=== PATIENT | female | born 1970 | race Caucasian/White ===

== ENCOUNTER 2018-06-12 19:43 | Emergency (ER) | payer MEDICAID ==
[~2018-06-12] VITALS: Ht 157.5 cm; Wt 91.9 kg
[2018-06-12 19:46] VITALS: BP 124/85
== END 2018-06-12 20:43 | disposition home or self-care (01) ==
LOC: ED 20:30
DX: H60.501 Unspecified acute noninfective otitis externa, right ear (principal); E11.9 Type 2 diabetes mellitus without complications
CPT/HCPCS: 99283

== ENCOUNTER 2019-10-14 11:13 | Emergency (ER) | payer MEDICAID ==
[~2019-10-14] VITALS: Ht 157.5 cm; Wt 100.0 kg
[2019-10-14] MEDS ORDERED: LIDOCAINE-MPF 1%, 5ML INFIL ONE (11:30)
[2019-10-14] MEDS ORDERED: OXYcodone/APAP 5/325MG TABLET ONE (14:38)
[2019-10-14] MEDS ORDERED: NEOSPORIN OINT. PKT 1 PACKET ONE (14:52)
[2019-10-14] MEDS ORDERED: OXYcodone/APAP 5/325MG TABLET PO ONE (15:00)
[2019-10-14 15:24] VITALS: BP 125/70
== END 2019-10-14 15:27 | disposition home or self-care (01) ==
LOC: ED 15:21
DX: L03.312 Cellulitis of back [any part except buttock and flank] (principal); E11.9 Type 2 diabetes mellitus without complications
CPT/HCPCS: 99284

== ENCOUNTER 2019-11-18 11:31 | Emergency (ER) | payer MEDICAID ==
[~2019-11-18] VITALS: Ht 157.5 cm; Wt 101.4 kg
[2019-11-18 12:32] LABS: BASOPHILS # (AUTO) 0.06 x10^3/uL (0-0.1); BASOPHILS % (AUTO) 1 % (0-1); EOSINOPHILS # (AUTO) 0.31 x10^3/uL (0-0.4); EOSINOPHILS % (AUTO) 5 % (1-7); LYMPHOCYTES # (AUTO) 1.34 x10^3/uL (1-3.4); LYMPHOCYTES % (AUTO) 19 % (22-44); MD NO; MEAN CORPUSCULAR HEMOGLOBIN 28.3 pg (27.0-34.8); MEAN CORPUSCULAR HGB CONC 33.2 g/dL (32.4-35.8); MEAN CORPUSCULAR VOLUME 85.3 fL (80-100); MEAN PLATELET VOLUME 7.8 fL (7.4-10.4); MONOCYTES # (AUTO) 0.35 x10^3/uL (0.2-0.8); MONOCYTES % (AUTO) 5 % (2-9); NEUTROPHILS # (AUTO) 4.82 x10^3/uL (1.8-6.8); NEUTROPHILS % (AUTO) 70 % (42-75); PLATELET COUNT 384 x10^3/uL (130-400); RED BLOOD COUNT 3.75 x10^6/uL (3.82-5.3); RED CELL DISTRIBUTION WIDTH 13.9 % (9.6-15.2)
--- NOTE | 2019-11-18 12:32 | NUR ---
PT HAS CO OF BILAT LEG SWELLING W PAIN STARTED YESTERDAY. RIGHT GREATHER THAN LEFT. PT DENIES CP OR SOB. TAKES LASIX
[2019-11-18 12:41] LABS: ALANINE AMINOTRANSFERASE 16 U/L (12-78); ALBUMIN 1.8 g/dL (3.4-5.0); ANION GAP 4 mmol/L (5-15); CALCIUM 8.2 mg/dL (8.5-10.1); CHLORIDE 113 mmol/L (98-107); CREATININE 1.21 mg/dL (0.55-1.02)
[2019-11-18 12:45] LABS: ALKALINE PHOSPHATASE 125 U/L (45-117); BILIRUBIN,TOTAL 0.3 mg/dL (0.2-1.0); TOTAL PROTEIN 7.1 g/dL (6.4-8.2); TROPONIN I < 0.015 ng/mL (0.000-0.045)
[2019-11-18 13:29] VITALS: BP 123/87
--- NOTE | 2019-11-18 14:06 | NUR ---
DPatient/Caregiver given discharge instructions and they have confirmed that they understand the instructions. Patient ambulatory with steady gait.
== END 2019-11-18 14:14 | disposition home or self-care (01) ==
LOC: ED 14:07
DX: R60.0 Localized edema (principal); E11.9 Type 2 diabetes mellitus without complications; I51.7 Cardiomegaly
CPT/HCPCS: 36415; 71045; 80053; 83880; 84484; 85025; 93005; 93970; 99285

== ENCOUNTER 2020-09-24 19:54 | Inpatient (IN) | payer MEDICAID ==
[~2020-09-24] VITALS: Ht 157.5 cm; Wt 122.3 kg
--- NOTE | 2020-09-24 20:27 | NUR ---
cc of sob and left ear pain. pt states "I always feels sob today it just feels worse like I can't catch my breath and my mom told me to come get checked out". pt connected to continuous pulse ox, 98% on RA.
[2020-09-24 20:28] LABS: BASOPHILS % (AUTO) 1 % (0-1); EOSINOPHILS % (AUTO) 10 % (1-7); LYMPHOCYTES % (AUTO) 16 % (22-44); MEAN CORPUSCULAR HGB CONC 31.9 g/dL (32.4-35.8); MEAN PLATELET VOLUME 7.1 fL (7.4-10.4); MONOCYTES % (AUTO) 5 % (2-9); NEUTROPHILS % (AUTO) 68 % (42-75); PLATELET COUNT 351 x10^3/uL (130-400); RED BLOOD COUNT 2.59 x10^6/uL (3.82-5.3); RED CELL DISTRIBUTION WIDTH 15.5 % (9.6-15.2)
[2020-09-24 20:29] LABS: MD NO
[2020-09-24] MEDS ORDERED: SODIUM CHLORIDE FLUSH 10ML SYR IVF ONE (20:30)
[2020-09-24 20:40] LABS: ALANINE AMINOTRANSFERASE 29 U/L (12-78); ALBUMIN 1.4 g/dL (3.4-5.0); ANION GAP 5 mmol/L (5-15); CALCIUM 8.2 mg/dL (8.5-10.1); CHLORIDE 126 mmol/L (98-107); CREATININE 2.35 mg/dL (0.55-1.02); INTERNATIONAL NORMALIZED RATIO 0.92 (0.93-1.1); PROTHROMBIN TIME 9.8 Seconds (9.6-11.5)
[2020-09-24 20:45] LABS: ALKALINE PHOSPHATASE 125 U/L (45-117); BILIRUBIN,TOTAL 0.1 mg/dL (0.2-1.0); TOTAL PROTEIN 6.4 g/dL (6.4-8.2)
[2020-09-24 20:56] LABS: MICROSCOPIC INDICATED
[2020-09-24] MEDS ORDERED: CEFTRIAXONE PMX 1GM/50ML 50 ML IVPB ONE (21:00)
--- NOTE | 2020-09-24 21:00 | NUR ---
ua walked to lab
[2020-09-24] MEDS ORDERED: CEFTRIAXONE PMX 1GM/50ML 50 ML ONE (21:04)
--- NOTE | 2020-09-24 21:15 | NUR ---
pt to imaging
--- NOTE | 2020-09-24 21:30 | NUR ---
pt in bathroom
[2020-09-24] MEDS ORDERED: SODIUM CHLORIDE FLUSH 10ML SYR IVF PRN (22:00)
--- NOTE | 2020-09-24 22:00 | NUR ---
BLOOD CULTURES X 2 COMPLETED BEFORE ABX ADMINISTRATION
[2020-09-24] MEDS ORDERED: SODIUM BICARBONATE 1 MEQ/ML, 50ML VIAL IVPush ONE (22:30)
[2020-09-24] MEDS ORDERED: DOCUSATE 100 MG CAPSULE PO PRN (23:00)
[2020-09-24] MEDS ORDERED: BISACODYL 10 MG SUPP PR PRN (23:00)
[2020-09-24] MEDS ORDERED: hydrALAzine 20 MG/ML, 1ML IVPush PRN (23:00)
[2020-09-24] MEDS ORDERED: POLYETHYLENE GLYCOL 17 GM PACKET PO PRN (23:00)
[2020-09-24] MEDS ORDERED: DEXTROSE 50%, 50ML SYRINGE IVPush PRN (23:00)
[2020-09-24] MEDS ORDERED: PROMETHAZINE 25 MG/ML, 1ML IM PRN (23:00)
[2020-09-24] MEDS ORDERED: GLUCAGON 1 MG IM PRN (23:00)
[2020-09-24] MEDS ORDERED: ONDANSETRON 2MG/ML, 2ML IVPush PRN (23:00)
[2020-09-24] MEDS ORDERED: ONDANSETRON ODT 4 MG PO PRN (23:00)
[2020-09-24] MEDS ORDERED: OXYcodone IR 5MG TABLET PO PRN (23:00)
[2020-09-24] MEDS ORDERED: DEXTROSE 4 GM TAB.CHEW PO PRN (23:00)
[2020-09-24] MEDS ORDERED: morphine SULFATE 10 MG/ML, 1ML IVPush PRN (23:00)
[2020-09-24 23:05] LABS: HCT (SEDRATE) 23.6 % (34.6-47.8)
[2020-09-24] MEDS ORDERED: SODIUM BICARB 8.4%, 50ML SYRINGE ONE (23:32)
[2020-09-24] MEDS ORDERED: FUROSEMIDE 40 MG/4 ML ONE (23:32)
[2020-09-24] MEDS ORDERED: HEPARIN 5,000 UNITS/ML, 1ML ONE (23:32)
[2020-09-24] MEDS: ALBUMIN HUMAN 25% 100 ML IV SCH (23:54)
[2020-09-24] MEDS: HEPARIN 5,000 UNITS/ML, 1ML SQ SCH (23:54)
--- NOTE | 2020-09-25 | NUR ---
PT RESTING. RESP EVEN AND UNLABORED. NO NEEDS AT THIS TIME
--- NOTE | 2020-09-25 00:58 | NUR ---
PT PLACED ON HOSPITAL BED
[2020-09-25] MEDS ORDERED: FUROSEMIDE 40 MG/4 ML IV ONE (01:00)
[2020-09-25] MEDS: AZITHROMYCIN 500 MG in SODIUM CHLORIDE 0.9% 250 ML IV SCH (01:01)
--- NOTE | 2020-09-25 01:06 | NUR ---
PT UP TO BATHROOM FOR BM
--- NOTE | 2020-09-25 02:05 | NUR ---
pt sleeping, resp even and unlabored.
--- NOTE | 2020-09-25 03:32 | NUR ---
covid test collected and walked to lab
[2020-09-25 05:03] LABS: BASOPHILS % (AUTO) 1 % (0-1); EOSINOPHILS % (AUTO) 8 % (1-7); LYMPHOCYTES % (AUTO) 16 % (22-44); MEAN CORPUSCULAR HGB CONC 31.7 g/dL (32.4-35.8); MEAN PLATELET VOLUME 7.3 fL (7.4-10.4); MONOCYTES % (AUTO) 5 % (2-9); NEUTROPHILS % (AUTO) 70 % (42-75); PLATELET COUNT 302 x10^3/uL (130-400); RED CELL DISTRIBUTION WIDTH 15.9 % (9.6-15.2)
[2020-09-25 05:14] LABS: ALBUMIN 1.8 g/dL (3.4-5.0); ANION GAP 4 mmol/L (5-15); CALCIUM 7.9 mg/dL (8.5-10.1); CHLORIDE 127 mmol/L (98-107)
[2020-09-25 05:15] LABS: MD NO
[2020-09-25 05:25] LABS: ALANINE AMINOTRANSFERASE 30 U/L (12-78); ALKALINE PHOSPHATASE 116 U/L (45-117); BILIRUBIN,TOTAL 0.1 mg/dL (0.2-1.0); C-REACTIVE PROTEIN, QUANT 0.61 mg/dL (0.02-0.49); CHOL/HDL RATIO 1.9; CHOLESTEROL, TOTAL 91 mg/dL (140-239); CREATININE 2.19 mg/dL (0.55-1.02); HDL CHOL % 54 % (28-40); HDL CHOLESTEROL (DIRECT) 49 mg/dL (40-60); LDL CHOLESTEROL,CALCULATED 25 mg/dL (54-169); LDL/HDL RATIO 0.5 (0.5-3.0); TOTAL PROTEIN 6.3 g/dL (6.4-8.2); TRIGLYCERIDES 85 mg/dL (50-200); VLDL CHOLESTEROL 17 mg/dL (0-25)
--- NOTE | 2020-09-25 05:31 | NUR ---
hemoglobin and hematocrit reported to dr stevenson. no new orders at this time
[2020-09-25] MEDS: ALBUMIN HUMAN 25% 100 ML IV SCH ×4 (06:17→23:04)
--- NOTE | 2020-09-25 06:20 | NUR ---
PT SLEEPING, RESP EVEN AND UNLABORED, CALL LIGHT WITHIN REACH
--- NOTE | 2020-09-25 07:00 | NUR ---
REPORT GIVEN TO JENNIE WESLEY
[2020-09-25] MEDS ORDERED: SODIUM ZIRCONIUM CYCLOSILICATE 5 GM PO ONE (08:00)
[2020-09-25] MEDS ORDERED: HEPARIN 5,000 UNITS/ML, 1ML ONE (08:10)
[2020-09-25] MEDS: INSULIN LISPRO 100 UNITS/ML, PEN SQ-INSULIN SCH ×4 (08:17→21:00)
[2020-09-25] MEDS: SODIUM CHLORIDE FLUSH 10ML SYR IVF SCH ×2 (08:18→20:48)
[2020-09-25] MEDS: HEPARIN 5,000 UNITS/ML, 1ML SQ SCH (08:18)
--- NOTE | 2020-09-25 08:35 | NUR ---
PT PROVIDED WITH MEAL TRAY. DENIES FURTHER NEEDS AT THIS TIME
[2020-09-25] MEDS ORDERED: FUROSEMIDE 40 MG/4 ML IV SCH (10:00)
[2020-09-25] MEDS: SODIUM BICARBONATE 650 MG TABLET PO SCH ×2 (10:28→20:48)
[2020-09-25] MEDS ORDERED: OXYcodone IR 5MG TABLET ONE (11:15)
[2020-09-25] MEDS ORDERED: FUROSEMIDE 20 MG/2 ML ONE (12:50)
[2020-09-25] MEDS ORDERED: FUROSEMIDE 40 MG/4 ML ONE (12:52)
[2020-09-25] MEDS ORDERED: PANTOPRAZOLE 40 MG IV ONE (12:52)
[2020-09-25] MEDS: PANTOPRAZOLE 40 MG IV IVPush SCH (12:56)
[2020-09-25 14:26] LABS: ANION GAP 4 mmol/L (5-15); CALCIUM 8.5 mg/dL (8.5-10.1); CHLORIDE 127 mmol/L (98-107); CREATININE 2.23 mg/dL (0.55-1.02)
[2020-09-25] MEDS: SUCRALFATE 1 GM TABLET PO SCH ×2 (16:02→20:49)
[2020-09-25 16:23] VITALS: BP 108/64
[2020-09-25 16:46] VITALS: BP 108/64
[2020-09-25 16:50] VITALS: BP 110/66
[2020-09-25 17:05] VITALS: BP 108/67
[2020-09-25 17:45] VITALS: BP 114/71
[2020-09-25] MEDS ORDERED: CEFTRIAXONE PMX 2GM/50ML 50 ML IVPB SCH (19:00)
[2020-09-25 19:32] VITALS: BP 138/81
[2020-09-26 00:30] VITALS: BP 112/70
[2020-09-26] MEDS: AZITHROMYCIN 500 MG in SODIUM CHLORIDE 0.9% 250 ML IV SCH (01:49)
[2020-09-26] MEDS: PANTOPRAZOLE 40 MG IV IVPush SCH ×2 (01:50→12:04)
[2020-09-26 06:17] LABS: BASOPHILS % (AUTO) 1 % (0-1); EOSINOPHILS % (AUTO) 8 % (1-7); LYMPHOCYTES % (AUTO) 13 % (22-44); MEAN CORPUSCULAR HEMOGLOBIN 29.7 pg (27.0-34.8); MEAN CORPUSCULAR HGB CONC 32.5 g/dL (32.4-35.8); MEAN PLATELET VOLUME 7.6 fL (7.4-10.4); MONOCYTES % (AUTO) 6 % (2-9); NEUTROPHILS % (AUTO) 73 % (42-75); PLATELET COUNT 308 x10^3/uL (130-400); RED BLOOD COUNT 2.59 x10^6/uL (3.82-5.3); RED CELL DISTRIBUTION WIDTH 15.6 % (9.6-15.2)
[2020-09-26 06:22] LABS: MD NO
[2020-09-26 06:23] LABS: ALBUMIN 2.8 g/dL (3.4-5.0); ANION GAP 8 mmol/L (5-15); CALCIUM 8.5 mg/dL (8.5-10.1); CHLORIDE 123 mmol/L (98-107); CREATININE 2.32 mg/dL (0.55-1.02)
[2020-09-26 06:27] LABS: ALANINE AMINOTRANSFERASE 35 U/L (12-78); ALKALINE PHOSPHATASE 115 U/L (45-117); BILIRUBIN,TOTAL 0.3 mg/dL (0.2-1.0); TOTAL PROTEIN 6.8 g/dL (6.4-8.2)
[2020-09-26] MEDS: SUCRALFATE 1 GM TABLET PO SCH ×4 (06:42→20:43)
[2020-09-26] MEDS ORDERED: SODIUM ZIRCONIUM CYCLOSILICATE 10 GM PO ONE (07:00)
[2020-09-26 07:01] VITALS: BP 119/70
[2020-09-26] MEDS: INSULIN LISPRO 100 UNITS/ML, PEN SQ-INSULIN SCH ×2 (08:24→12:05)
[2020-09-26] MEDS: SODIUM BICARBONATE 650 MG TABLET PO SCH ×2 (10:38→20:43)
[2020-09-26] MEDS: SODIUM CHLORIDE FLUSH 10ML SYR IVF SCH ×2 (10:38→20:43)
[2020-09-26] MEDS: ALBUMIN HUMAN 25% 100 ML IV SCH (10:38)
[2020-09-26] MEDS: FUROSEMIDE 40 MG/4 ML IV SCH (10:38)
[2020-09-26 12:03] VITALS: BP 126/71
[2020-09-26] MEDS: ACETAMINOPHEN 325 MG TABLET PO PRN (12:04)
[2020-09-26] MEDS: IRON SUCROSE COMPLEX 100MG/5ML IV SCH (13:13)
[2020-09-26] MEDS: SODIUM ZIRCONIUM CYCLOSILICATE 5 GM PO SCH ×3 (14:21→22:45)
[2020-09-26 14:58] LABS: ANA SCREEN NEGATIVE (Negative)
[2020-09-26 20:18] VITALS: BP 142/79
[2020-09-27 02:03] VITALS: BP 119/62
[2020-09-27] MEDS: SUCRALFATE 1 GM TABLET PO SCH ×4 (05:53→20:10)
[2020-09-27] MEDS: PANTOPRAZOLE 40MG TABLET PO SCH ×2 (05:53→17:11)
[2020-09-27 06:31] VITALS: BP 130/72
[2020-09-27 07:55] LABS: BASOPHILS % (AUTO) 1 % (0-1); EOSINOPHILS % (AUTO) 6 % (1-7); LYMPHOCYTES % (AUTO) 12 % (22-44); MEAN CORPUSCULAR HGB CONC 32.1 g/dL (32.4-35.8); MEAN PLATELET VOLUME 7.3 fL (7.4-10.4); MONOCYTES % (AUTO) 5 % (2-9); NEUTROPHILS % (AUTO) 76 % (42-75); PLATELET COUNT 309 x10^3/uL (130-400); RED BLOOD COUNT 2.65 x10^6/uL (3.82-5.3); RED CELL DISTRIBUTION WIDTH 15.9 % (9.6-15.2)
[2020-09-27 08:05] LABS: MD NO
[2020-09-27 08:11] LABS: ANION GAP 6 mmol/L (5-15); CALCIUM 8.7 mg/dL (8.5-10.1); CHLORIDE 124 mmol/L (98-107); CREATININE 2.23 mg/dL (0.55-1.02)
[2020-09-27] MEDS: FUROSEMIDE 40 MG/4 ML IV SCH (09:00)
[2020-09-27] MEDS: IRON SUCROSE COMPLEX 100MG/5ML IV SCH (09:00)
[2020-09-27] MEDS: ALBUMIN HUMAN 25% 100 ML IV SCH (09:00)
[2020-09-27] MEDS: SODIUM BICARBONATE 650 MG TABLET PO SCH ×2 (09:01→20:10)
[2020-09-27] MEDS: SODIUM CHLORIDE FLUSH 10ML SYR IVF SCH ×2 (09:02→20:10)
[2020-09-27] MEDS: SODIUM ZIRCONIUM CYCLOSILICATE 5 GM PO SCH ×3 (11:47→22:23)
[2020-09-27 12:28] VITALS: BP 159/84
[2020-09-27] MEDS: ACETAMINOPHEN 325 MG TABLET PO PRN (18:40)
[2020-09-27 20:00] VITALS: BP 151/79
[2020-09-28] VITALS: BP 167/87
[2020-09-28] MEDS: PANTOPRAZOLE 40MG TABLET PO SCH ×2 (06:00→16:48)
[2020-09-28 06:02] LABS: BASOPHILS % (AUTO) 1 % (0-1); EOSINOPHILS % (AUTO) 8 % (1-7); LYMPHOCYTES % (AUTO) 15 % (22-44); MEAN CORPUSCULAR HEMOGLOBIN 29.2 pg (27.0-34.8); MEAN CORPUSCULAR HGB CONC 32.5 g/dL (32.4-35.8); MEAN PLATELET VOLUME 7.3 fL (7.4-10.4); MONOCYTES % (AUTO) 7 % (2-9); NEUTROPHILS % (AUTO) 69 % (42-75); PLATELET COUNT 304 x10^3/uL (130-400); RED BLOOD COUNT 2.51 x10^6/uL (3.82-5.3); RED CELL DISTRIBUTION WIDTH 15.6 % (9.6-15.2)
[2020-09-28 06:05] LABS: ANION GAP 6 mmol/L (5-15); CALCIUM 8.4 mg/dL (8.5-10.1); CHLORIDE 123 mmol/L (98-107)
[2020-09-28 06:07] LABS: CREATININE 2.06 mg/dL (0.55-1.02)
[2020-09-28] MEDS: SUCRALFATE 1 GM TABLET PO SCH ×4 (06:12→21:00)
[2020-09-28 06:17] LABS: MD NO
[2020-09-28 07:10] VITALS: BP 189/91
[2020-09-28] MEDS: SODIUM ZIRCONIUM CYCLOSILICATE 5 GM PO SCH (07:17)
[2020-09-28 08:00] VITALS: BP 157/83
[2020-09-28] MEDS: SODIUM CHLORIDE FLUSH 10ML SYR IVF SCH ×2 (09:00→21:08)
[2020-09-28] MEDS: SODIUM BICARBONATE 650 MG TABLET PO SCH ×2 (09:00→21:07)
[2020-09-28] MEDS: IRON SUCROSE COMPLEX 100MG/5ML IV SCH (09:11)
[2020-09-28] MEDS: FUROSEMIDE 40 MG/4 ML IV SCH (09:12)
[2020-09-28] MEDS: ALBUMIN HUMAN 25% 100 ML IV SCH (09:12)
[2020-09-28 12:40] VITALS: BP 172/91
[2020-09-28 19:08] VITALS: BP 158/86
[2020-09-29 00:35] VITALS: BP 144/71
[2020-09-29] MEDS: PANTOPRAZOLE 40MG TABLET PO SCH ×2 (06:00→16:30)
[2020-09-29 06:06] LABS: BASOPHILS % (AUTO) 1 % (0-1); EOSINOPHILS % (AUTO) 12 % (1-7); LYMPHOCYTES % (AUTO) 13 % (22-44); MEAN CORPUSCULAR HEMOGLOBIN 29.4 pg (27.0-34.8); MEAN CORPUSCULAR HGB CONC 33.2 g/dL (32.4-35.8); MEAN PLATELET VOLUME 7.6 fL (7.4-10.4); MONOCYTES % (AUTO) 7 % (2-9); NEUTROPHILS % (AUTO) 67 % (42-75); PLATELET COUNT 298 x10^3/uL (130-400); RED BLOOD COUNT 2.59 x10^6/uL (3.82-5.3); RED CELL DISTRIBUTION WIDTH 15.5 % (9.6-15.2)
[2020-09-29] MEDS: SUCRALFATE 1 GM TABLET PO SCH ×4 (06:13→20:07)
[2020-09-29 06:18] LABS: ALBUMIN 2.6 g/dL (3.4-5.0); ANION GAP 6 mmol/L (5-15); CALCIUM 8.7 mg/dL (8.5-10.1); CHLORIDE 123 mmol/L (98-107)
[2020-09-29 06:23] LABS: MD NO
[2020-09-29 06:24] LABS: ALANINE AMINOTRANSFERASE 30 U/L (12-78); ALKALINE PHOSPHATASE 104 U/L (45-117); BILIRUBIN,TOTAL 0.3 mg/dL (0.2-1.0); CREATININE 1.99 mg/dL (0.55-1.02); TOTAL PROTEIN 6.4 g/dL (6.4-8.2)
[2020-09-29 07:26] VITALS: BP 133/70
[2020-09-29] MEDS: IRON SUCROSE COMPLEX 100MG/5ML IV SCH (08:18)
[2020-09-29] MEDS: SODIUM CHLORIDE FLUSH 10ML SYR IVF SCH ×2 (08:19→20:08)
[2020-09-29] MEDS: SODIUM BICARBONATE 650 MG TABLET PO SCH ×2 (08:19→20:07)
[2020-09-29] MEDS: ALBUMIN HUMAN 25% 100 ML IV SCH (08:33)
[2020-09-29] MEDS: FUROSEMIDE 40 MG/4 ML IV SCH (11:15)
[2020-09-29 12:01] LABS: HCG UR SG 1.021 (1.003-1.030)
[2020-09-29] MEDS ORDERED: FENTANYL PF 100 MCG/2ML ONE (12:52)
[2020-09-29] MEDS ORDERED: MIDAZOLAM 1 MG/ML, 2ML ONE (12:52)
[2020-09-29] MEDS ORDERED: CHLORHEXIDINE 15 ML UDC ONE (13:01)
[2020-09-29] MEDS ORDERED: PROPOFOL 10 MG/ML, 20ML ONE (13:58)
[2020-09-29] MEDS ORDERED: SODI650T PO (15:51)
[2020-09-29] MEDS ORDERED: FURO-92 PO (15:51)
[2020-09-29] MEDS ORDERED: OMEP-110 PO (15:51)
[2020-09-29] MEDS ORDERED: SUCR1ORA5 PO (15:51)
[2020-09-29 18:47] VITALS: BP 151/78
[2020-09-30 02:10] VITALS: BP 154/81
[2020-09-30] MEDS: PANTOPRAZOLE 40MG TABLET PO SCH (05:45)
[2020-09-30] MEDS: SUCRALFATE 1 GM TABLET PO SCH ×2 (05:45→11:17)
[2020-09-30 07:57] VITALS: BP 154/77
[2020-09-30] MEDS: SODIUM BICARBONATE 650 MG TABLET PO SCH (08:33)
[2020-09-30] MEDS: IRON SUCROSE COMPLEX 100MG/5ML IV SCH (08:33)
[2020-09-30] MEDS: SODIUM CHLORIDE FLUSH 10ML SYR IVF SCH (08:34)
[2020-09-30] MEDS: ALBUMIN HUMAN 25% 100 ML IV SCH (08:34)
[2020-09-30] MEDS: FUROSEMIDE 40 MG/4 ML IV SCH (10:28)
== END 2020-09-30 11:55 | disposition home or self-care (01) | DRG 241 ==
LOC: ED 23:10 → EDIP 23:30 → 4WST 09-25 14:27 → 3N 09-27 23:30 → DCLOUNGE 09-30 11:44
PROVIDERS: ADMIT Internal Medicine; ATTEND Family Medicine
PROC: 0DB78ZX Excision of Stomach, Pylorus, Via Natural or Artificial Opening Endoscopic, Diagnostic (ICD-10-PCS; 2020-09-29)
PROC: 0DB98ZX Excision of Duodenum, Via Natural or Artificial Opening Endoscopic, Diagnostic (ICD-10-PCS; principal; 2020-09-29 13:00)
DX: K29.70 Gastritis, unspecified, without bleeding (principal); N17.0 Acute kidney failure with tubular necrosis; K25.9 Gastric ulcer, unspecified as acute or chronic, without hemorrhage or perforation; J18.9 Pneumonia, unspecified organism; T39.395A Adverse effect of other nonsteroidal anti-inflammatory drugs [NSAID], initial encounter; Z20.822 Contact with and (suspected) exposure to COVID-19; G89.29 Other chronic pain; M54.9 Dorsalgia, unspecified; D50.9 Iron deficiency anemia, unspecified; E11.9 Type 2 diabetes mellitus without complications; E66.9 Obesity, unspecified; E83.39 Other disorders of phosphorus metabolism; E87.2 Acidosis; I50.41 Acute combined systolic (congestive) and diastolic (congestive) heart failure; K74.60 Unspecified cirrhosis of liver; E87.5 Hyperkalemia; E88.09 Other disorders of plasma-protein metabolism, not elsewhere classified; E88.81 Metabolic syndrome and other insulin resistance; I11.0 Hypertensive heart disease with heart failure; Z79.1 Long term (current) use of non-steroidal anti-inflammatories (NSAID); Z87.11 Personal history of peptic ulcer disease; Z90.49 Acquired absence of other specified parts of digestive tract; Z88.0 Allergy status to penicillin
CPT/HCPCS: 36415; 36430; 74022; 76700; 80048; 80053; 80061; 81001; 81025; 82105; 82306; 82570; 82728; 82947; 82962; 83036; 83520; 83540; 83550; 83605; 83690; 83735; 83880; 83970; 84100; 84145; 84156; 84443; 85014; 85018; 85025; 85610; 85651; 85730; 86038; 86140; 86160; 86225; 86256; 86705; 86706; 86708; 86803; 86850; 86900; 86923; 87040; 87340; 88305; 93005; 93306; 96374; 96375; 99285; G0378; J0456; J0696; J1644; J1756; J1940; J2250; J2704; J3010; P9047; C9113; J2270; J7050; P9016; U0003

== ENCOUNTER 2021-01-09 12:44 | Inpatient (IN) | payer MEDICAID ==
[~2021-01-09] VITALS: Ht 157.5 cm; Wt 110.6 kg
[~2021-01-09 12:44] MED LIST: FURO-92 PO; OMEP-110 PO; SODI650T PO; SUCR1ORA5 PO
--- NOTE | 2021-01-09 13:22 | NUR ---
PT BIB EMS FOR ABD PAIN THAT STARTED LAST NIGHT SHE SAYS. PT WAS SEEN 2 MONTHS AGO FOR CIRROHSIS AND ABD SWELLING. "THEY TOLD ME THE SWELLING WOULD GO DOWN BUT IT HAS BEEN GETTING WORSE". PT RECIEVED 100[employer]G [facility] POST CLOSER. PT RESTING IN GURNEY. MEASURES TO BE TAKEN TO INCREASE BP BEFORE ADM OF FURTHER PAIN MEDS. PT RESTING IN GURNEY. CONNECTED TO MONITORING EQUIPMENT.
[2021-01-09] MEDS ORDERED: SODIUM CHLORIDE 0.9% 1,000ML IVBOLUS ONE (13:30)
[2021-01-09] MEDS ORDERED: ALBUMIN HUMAN 25% 100 ML IV ONE (13:30)
[2021-01-09] MEDS ORDERED: SODIUM CHLORIDE FLUSH 10ML SYR IVF ONE (13:30)
[2021-01-09] MEDS ORDERED: MORPHINE SULFATE 4 MG/ML, 1ML IVPush PRN (13:30)
[2021-01-09 13:31] LABS: BASOPHILS % (AUTO) 1 % (0-1); EOSINOPHILS % (AUTO) 25 % (1-7); LYMPHOCYTES % (AUTO) 16 % (22-44); MEAN CORPUSCULAR HEMOGLOBIN 29.2 pg (27.0-34.8); MEAN CORPUSCULAR HGB CONC 31.2 g/dL (32.4-35.8); MEAN PLATELET VOLUME 7.9 fL (7.4-10.4); MONOCYTES % (AUTO) 5 % (2-9); NEUTROPHILS % (AUTO) 53 % (42-75); PLATELET COUNT 232 x10^3/uL (130-400); RED BLOOD COUNT 2.66 x10^6/uL (3.82-5.3); RED CELL DISTRIBUTION WIDTH 17.4 % (9.6-15.2)
[2021-01-09 13:41] LABS: INTERNATIONAL NORMALIZED RATIO 1.01 (0.93-1.1); PROTHROMBIN TIME 10.8 Seconds (9.6-11.5)
[2021-01-09 13:43] LABS: ALANINE AMINOTRANSFERASE 31 U/L (12-78); ANION GAP 4 mmol/L (5-15); CALCIUM 7.8 mg/dL (8.5-10.1); CHLORIDE 128 mmol/L (98-107); CREATININE 2.48 mg/dL (0.55-1.02)
[2021-01-09 13:47] LABS: ALKALINE PHOSPHATASE 152 U/L (45-117); TOTAL PROTEIN 6.2 g/dL (6.4-8.2)
[2021-01-09 13:48] LABS: BILIRUBIN,TOTAL < 0.1 mg/dL (0.2-1.0)
[2021-01-09] MEDS ORDERED: LIDOCAINE 1%, 10ML ONE (13:48)
[2021-01-09 14:09] LABS: MD SCAN
--- NOTE | 2021-01-09 14:58 | NUR ---
PT TO CT AT THIS TIME
--- NOTE | 2021-01-09 15:55 | NUR ---
BEDSIDE FOR RECHECK. PT TO BE ADM.
[2021-01-09] MEDS ORDERED: ONDANSETRON ODT 4 MG PO PRN (16:30)
--- NOTE | 2021-01-09 16:33 | NUR ---
PT RESTING IN [facility]. NELLY.
--- NOTE | 2021-01-09 17:00 | NUR ---
TASK RN: REPORT CALLED TO MARYJANE KHAN ON FLOOR. PT PREPARED FOR TRANSPORT.
[2021-01-09 17:15] VITALS: BP 122/76
[2021-01-09 17:35] VITALS: BP 122/76
[2021-01-09] MEDS: OMEPRAZOLE 20 MG CAPSULE.DR PO SCH (17:58)
[2021-01-09] MEDS: SUCRALFATE 1 GM/10 ML UDC PO SCH (17:58)
[2021-01-09 19:09] VITALS: BP 126/80
[2021-01-09 19:13] VITALS: BP 120/75
[2021-01-09 19:19] VITALS: BP 111/73
[2021-01-09] MEDS: INSULIN LISPRO 100 UNITS/ML, PEN SQ-INSULIN SCH (20:48)
[2021-01-09] MEDS: SODIUM BICARBONATE 650 MG TABLET PO SCH (20:52)
[2021-01-10] VITALS (10 sets, daily range): BP systolic 72–124; BP diastolic 35–82
[2021-01-10 05:22] LABS: BASOPHILS % (AUTO) 1 % (0-1); EOSINOPHILS % (AUTO) 27 % (1-7); LYMPHOCYTES % (AUTO) 22 % (22-44); MEAN CORPUSCULAR HEMOGLOBIN 29.3 pg (27.0-34.8); MEAN PLATELET VOLUME 8.1 fL (7.4-10.4); MONOCYTES % (AUTO) 6 % (2-9); NEUTROPHILS % (AUTO) 45 % (42-75); PLATELET COUNT 216 x10^3/uL (130-400); RED BLOOD COUNT 2.71 x10^6/uL (3.82-5.3); RED CELL DISTRIBUTION WIDTH 17.8 % (9.6-15.2)
[2021-01-10 05:23] LABS: MD NO
[2021-01-10 05:36] LABS: ANION GAP 5 mmol/L (5-15); CALCIUM 7.4 mg/dL (8.5-10.1); CHLORIDE 128 mmol/L (98-107); CREATININE 2.64 mg/dL (0.55-1.02)
[2021-01-10] MEDS: SUCRALFATE 1 GM/10 ML UDC PO SCH (06:41)
[2021-01-10] MEDS: OMEPRAZOLE 20 MG CAPSULE.DR PO SCH ×2 (08:02→16:31)
[2021-01-10] MEDS: INSULIN LISPRO 100 UNITS/ML, PEN SQ-INSULIN SCH ×2 (08:02→12:03)
[2021-01-10] MEDS: SODIUM BICARBONATE 650 MG TABLET PO SCH ×2 (08:02→20:53)
[2021-01-10 10:14] LABS: TROPONIN I 0.016 ng/mL (0.000-0.045)
[2021-01-10] MEDS ORDERED: DARBEPOETIN 60 MCG/ML SQ SCH (11:00)
[2021-01-10 11:55] LABS: CALCIUM 7.7 mg/dL (8.5-10.1)
[2021-01-10] MEDS ORDERED: FUROSEMIDE 40 MG/4 ML IV SCH (12:00)
[2021-01-10 12:03] LABS: ABSOLUTE RETICS # 0.055 x10^6/uL (0.5-2.5); RED BLOOD COUNT 2.79 x10^6/uL (3.82-5.3); RETICULOCYTE COUNT % 1.96 % (0.5-1.5)
[2021-01-10] MEDS: ACETAMINOPHEN 325 MG TABLET PO PRN (12:03)
[2021-01-10] MEDS ORDERED: ALBUMIN HUMAN 25% 100 ML IV ONE (15:00)
[2021-01-10] MEDS: FUROSEMIDE 40 MG/4 ML IV SCH ×2 (16:24→20:53)
[2021-01-10 17:02] LABS: ANION GAP 3 mmol/L (5-15); CALCIUM 7.4 mg/dL (8.5-10.1); CHLORIDE 127 mmol/L (98-107)
[2021-01-10 17:05] LABS: CREATININE 2.71 mg/dL (0.55-1.02)
[2021-01-10] MEDS: morphine SULFATE 10 MG/ML, 1ML IVPush PRN (17:45)
[2021-01-10 18:25] LABS: CHLORIDE,URINE RANDOM 47 mmol/L; POTASSIUM,URINE RANDOM 30 mmol/L; SODIUM,URINE RANDOM 39 mmol/L
[2021-01-10 18:46] LABS: MICROSCOPIC INDICATED
[2021-01-11] VITALS (10 sets, daily range): BP systolic 77–103; BP diastolic 45–70
[2021-01-11] MEDS: morphine SULFATE 10 MG/ML, 1ML IVPush PRN ×2 (00:42→17:58)
[2021-01-11] MEDS ORDERED: SODIUM CHLORIDE 0.9%, 250ML IVBOLUS ONE (03:00)
[2021-01-11] MEDS ORDERED: ALBUMIN HUMAN 25% 100 ML IV ONE (03:00)
[2021-01-11 05:16] LABS: BASOPHILS % (AUTO) 0 % (0-1); EOSINOPHILS % (AUTO) 12 % (1-7); LYMPHOCYTES % (AUTO) 12 % (22-44); MEAN CORPUSCULAR HEMOGLOBIN 29.4 pg (27.0-34.8); MEAN CORPUSCULAR HGB CONC 30.7 g/dL (32.4-35.8); MEAN PLATELET VOLUME 8.2 fL (7.4-10.4); MONOCYTES % (AUTO) 5 % (2-9); NEUTROPHILS % (AUTO) 71 % (42-75); PLATELET COUNT 208 x10^3/uL (130-400); RED BLOOD COUNT 2.63 x10^6/uL (3.82-5.3); RED CELL DISTRIBUTION WIDTH 18.2 % (9.6-15.2)
[2021-01-11 05:28] LABS: ANION GAP 3 mmol/L (5-15); CALCIUM 7.4 mg/dL (8.5-10.1); CHLORIDE 127 mmol/L (98-107); CREATININE 3.13 mg/dL (0.55-1.02)
[2021-01-11 06:02] LABS: MD SCAN
[2021-01-11] MEDS: OMEPRAZOLE 20 MG CAPSULE.DR PO SCH ×2 (07:58→17:03)
[2021-01-11] MEDS ORDERED: MIDODRINE 5 MG TABLET PO ONE (08:30)
[2021-01-11] MEDS: SODIUM BICARBONATE 650 MG TABLET PO SCH (08:57)
[2021-01-11] MEDS: FUROSEMIDE 40 MG/4 ML IV SCH (09:00)
[2021-01-11] MEDS ORDERED: FENTANYL PF 100 MCG/2ML ONE (13:56)
[2021-01-11] MEDS ORDERED: FLUMAZENIL 0.1 MG/1 ML, 5ML ONE (13:57)
[2021-01-11] MEDS ORDERED: NALOXONE 1 MG/ML, 2ML ONE (13:57)
[2021-01-11] MEDS ORDERED: MIDAZOLAM 1 MG/ML, 5ML ONE (13:57)
[2021-01-11] MEDS: ERGOCALCIFEROL 50,000 UNIT CAPSULE PO SCH (15:49)
[2021-01-11] MEDS: FUROSEMIDE 40 MG TABLET PO SCH (17:03)
[2021-01-12 01:33] VITALS: BP 104/63
[2021-01-12 05:25] LABS: BASOPHILS % (AUTO) 0 % (0-1); EOSINOPHILS % (AUTO) 6 % (1-7); LYMPHOCYTES % (AUTO) 10 % (22-44); MEAN CORPUSCULAR HEMOGLOBIN 29.3 pg (27.0-34.8); MEAN CORPUSCULAR HGB CONC 30.7 g/dL (32.4-35.8); MEAN PLATELET VOLUME 8.3 fL (7.4-10.4); MONOCYTES % (AUTO) 6 % (2-9); NEUTROPHILS % (AUTO) 78 % (42-75); PLATELET COUNT 209 x10^3/uL (130-400); RED BLOOD COUNT 2.69 x10^6/uL (3.82-5.3)
[2021-01-12 05:32] LABS: MD NO
[2021-01-12] MEDS: morphine SULFATE 10 MG/ML, 1ML IVPush PRN ×2 (05:32→10:23)
[2021-01-12 05:37] LABS: CHLORIDE 126 mmol/L (98-107)
[2021-01-12 05:42] LABS: ALANINE AMINOTRANSFERASE 28 U/L (12-78); ALBUMIN 1.7 g/dL (3.4-5.0); ALKALINE PHOSPHATASE 126 U/L (45-117); ANION GAP 6 mmol/L (5-15); BILIRUBIN,TOTAL 0.1 mg/dL (0.2-1.0); CALCIUM 7.6 mg/dL (8.5-10.1); CREATININE 3.66 mg/dL (0.55-1.02); TOTAL PROTEIN 6.2 g/dL (6.4-8.2)
[2021-01-12 06:31] VITALS: BP 108/62
[2021-01-12] MEDS: OMEPRAZOLE 20 MG CAPSULE.DR PO SCH ×2 (08:12→17:15)
[2021-01-12] MEDS: FUROSEMIDE 40 MG TABLET PO SCH ×2 (08:13→17:15)
[2021-01-12] MEDS: METOLAZONE 5 MG TABLET PO SCH (10:23)
[2021-01-12 13:08] VITALS: BP 114/67
[2021-01-12 19:34] VITALS: BP 125/77
[2021-01-13 01:05] VITALS: BP 139/83
[2021-01-13 05:54] LABS: BASOPHILS % (AUTO) 0 % (0-1); EOSINOPHILS % (AUTO) 4 % (1-7); LYMPHOCYTES % (AUTO) 6 % (22-44); MEAN CORPUSCULAR HEMOGLOBIN 29.6 pg (27.0-34.8); MEAN CORPUSCULAR HGB CONC 32.1 g/dL (32.4-35.8); MEAN PLATELET VOLUME 8.7 fL (7.4-10.4); MONOCYTES % (AUTO) 5 % (2-9); NEUTROPHILS % (AUTO) 85 % (42-75); PLATELET COUNT 164 x10^3/uL (130-400); RED BLOOD COUNT 2.59 x10^6/uL (3.82-5.3); RED CELL DISTRIBUTION WIDTH 17.9 % (9.6-15.2)
[2021-01-13 05:55] LABS: MD NO
[2021-01-13 06:06] LABS: CHLORIDE 122 mmol/L (98-107)
[2021-01-13 06:13] LABS: ANION GAP 6 mmol/L (5-15); CALCIUM 7.5 mg/dL (8.5-10.1); CREATININE 3.57 mg/dL (0.55-1.02)
[2021-01-13] MEDS ORDERED: DEXTROSE 50%, 50ML SYRINGE ONE (06:27)
[2021-01-13] MEDS: DEXTROSE 50%, 50ML SYRINGE IVPush PRN ×3 (06:28→12:03)
[2021-01-13] MEDS ORDERED: DEXTROSE 4 GM TAB.CHEW PO PRN (06:30)
[2021-01-13] MEDS ORDERED: GLUCAGON 1 MG IM PRN (06:30)
[2021-01-13 07:50] VITALS: BP 135/77
[2021-01-13] MEDS: FUROSEMIDE 40 MG TABLET PO SCH ×2 (08:00→16:07)
[2021-01-13] MEDS: OMEPRAZOLE 20 MG CAPSULE.DR PO SCH ×2 (08:18→16:07)
[2021-01-13] MEDS: METOLAZONE 5 MG TABLET PO SCH ×2 (08:19→16:07)
[2021-01-13] MEDS: SODIUM CHLORIDE FLUSH 10ML SYR IVF SCH ×2 (08:19→21:00)
[2021-01-13] MEDS ORDERED: STERILE WATER IV ONE (14:30)
[2021-01-13] MEDS ORDERED: DEXTROSE 20% 500 ML IV SCH (14:30)
[2021-01-13] MEDS ORDERED: DEXTROSE 20% 500 ML IV ONE (14:30)
[2021-01-13] MEDS ORDERED: DEXTROSE 70% IV ONE (14:30)
[2021-01-13 15:56] VITALS: BP 164/80
[2021-01-13 17:36] VITALS: BP 165/82
[2021-01-13 20:27] VITALS: BP 162/77
[2021-01-14 01:02] VITALS: BP 149/76
[2021-01-14 05:31] LABS: BASOPHILS % (AUTO) 0 % (0-1); EOSINOPHILS % (AUTO) 6 % (1-7); LYMPHOCYTES % (AUTO) 8 % (22-44); MEAN CORPUSCULAR HEMOGLOBIN 29.8 pg (27.0-34.8); MEAN CORPUSCULAR HGB CONC 33.3 g/dL (32.4-35.8); MEAN PLATELET VOLUME 8.6 fL (7.4-10.4); MONOCYTES % (AUTO) 7 % (2-9); NEUTROPHILS % (AUTO) 79 % (42-75); PLATELET COUNT 146 x10^3/uL (130-400); RED CELL DISTRIBUTION WIDTH 17.1 % (9.6-15.2)
[2021-01-14 05:35] LABS: ALBUMIN 1.3 g/dL (3.4-5.0); ANION GAP 3 mmol/L (5-15); CALCIUM 7.3 mg/dL (8.5-10.1); CHLORIDE 113 mmol/L (98-107)
[2021-01-14 05:36] LABS: MD NO
[2021-01-14 05:38] LABS: ALANINE AMINOTRANSFERASE 24 U/L (12-78); ALKALINE PHOSPHATASE 153 U/L (45-117); BILIRUBIN,TOTAL 0.5 mg/dL (0.2-1.0); CREATININE 2.95 mg/dL (0.55-1.02); TOTAL PROTEIN 5.9 g/dL (6.4-8.2)
[2021-01-14 06:47] VITALS: BP 161/90
[2021-01-14] MEDS: METOLAZONE 5 MG TABLET PO SCH (08:52)
[2021-01-14] MEDS: FUROSEMIDE 40 MG TABLET PO SCH ×2 (08:52→16:25)
[2021-01-14] MEDS: OMEPRAZOLE 20 MG CAPSULE.DR PO SCH ×2 (08:52→16:19)
[2021-01-14] MEDS: SODIUM CHLORIDE FLUSH 10ML SYR IVF SCH ×2 (08:52→22:52)
[2021-01-14 11:55] VITALS: BP 160/82
[2021-01-14] MEDS ORDERED: OMNIPAQUE 350 MG/ML, 100ML BOTTLE ONE (15:36)
[2021-01-14 19:15] VITALS: BP 158/83
[2021-01-14] MEDS: STERILE WATER IV SCH (22:52)
[2021-01-14] MEDS: TRAZODONE 50MG TABLET PO PRN (22:52)
[2021-01-14] MEDS: DEXTROSE 70% IV SCH (22:52)
[2021-01-15 01:19] VITALS: BP 151/78
[2021-01-15 05:17] LABS: BASOPHILS % (AUTO) 1 % (0-1); EOSINOPHILS % (AUTO) 8 % (1-7); LYMPHOCYTES % (AUTO) 9 % (22-44); MEAN CORPUSCULAR HEMOGLOBIN 29.2 pg (27.0-34.8); MEAN CORPUSCULAR HGB CONC 32.5 g/dL (32.4-35.8); MEAN PLATELET VOLUME 8.1 fL (7.4-10.4); MONOCYTES % (AUTO) 5 % (2-9); NEUTROPHILS % (AUTO) 77 % (42-75); PLATELET COUNT 160 x10^3/uL (130-400); RED BLOOD COUNT 2.65 x10^6/uL (3.82-5.3); RED CELL DISTRIBUTION WIDTH 16.6 % (9.6-15.2)
[2021-01-15 05:32] LABS: MD NO
[2021-01-15 05:34] LABS: CHLORIDE 105 mmol/L (98-107)
[2021-01-15 05:50] LABS: ALANINE AMINOTRANSFERASE 22 U/L (12-78); ALBUMIN 1.2 g/dL (3.4-5.0); ALKALINE PHOSPHATASE 145 U/L (45-117); ANION GAP 3 mmol/L (5-15); BILIRUBIN,TOTAL 0.5 mg/dL (0.2-1.0); CALCIUM 7.1 mg/dL (8.5-10.1); CREATININE 1.98 mg/dL (0.55-1.02); TOTAL PROTEIN 5.7 g/dL (6.4-8.2)
[2021-01-15 06:34] VITALS: BP 123/68
[2021-01-15] MEDS: METOLAZONE 5 MG TABLET PO SCH (08:07)
[2021-01-15] MEDS: OMEPRAZOLE 20 MG CAPSULE.DR PO SCH ×2 (08:07→16:56)
[2021-01-15] MEDS: FUROSEMIDE 40 MG TABLET PO SCH ×2 (08:08→16:56)
[2021-01-15] MEDS: SODIUM CHLORIDE FLUSH 10ML SYR IVF SCH ×2 (08:08→21:00)
[2021-01-15] MEDS ORDERED: DARBEPOETIN 60 MCG/ML SQ SCH (08:52)
[2021-01-15] MEDS ORDERED: LIDOCAINE 1%, 10ML ONE (10:37)
[2021-01-15] MEDS ORDERED: LIDOCAINE 1%, 20ML ONE (10:37)
[2021-01-15] MEDS ORDERED: FENTANYL PF 100 MCG/2ML ONE (11:17)
[2021-01-15] MEDS ORDERED: FLUMAZENIL 0.1 MG/1 ML, 5ML ONE (11:17)
[2021-01-15] MEDS ORDERED: NALOXONE 1 MG/ML, 2ML ONE (11:17)
[2021-01-15] MEDS ORDERED: MIDAZOLAM 1 MG/ML, 5ML ONE (11:17)
[2021-01-15 12:18] VITALS: BP 129/72
[2021-01-15] MEDS: ACETAMINOPHEN 325 MG TABLET PO PRN (13:11)
[2021-01-15 18:40] LABS: ALBUMIN 1.2 g/dL (3.4-5.0); ANION GAP 2 mmol/L (5-15); CHLORIDE 106 mmol/L (98-107); CREATININE 2.38 mg/dL (0.55-1.02)
[2021-01-15 18:45] LABS: ALANINE AMINOTRANSFERASE 21 U/L (12-78); ALKALINE PHOSPHATASE 143 U/L (45-117); BILIRUBIN,TOTAL 0.5 mg/dL (0.2-1.0); TOTAL PROTEIN 5.8 g/dL (6.4-8.2)
[2021-01-15 19:27] VITALS: BP 159/83
[2021-01-15 21:56] LABS: MICROSCOPIC INDICATED
[2021-01-15] MEDS: DEXTROSE 70% IV SCH (21:59)
[2021-01-15] MEDS: STERILE WATER IV SCH (21:59)
[2021-01-15] MEDS: TRAZODONE 50MG TABLET PO PRN (22:07)
[2021-01-16 00:18] VITALS: BP 111/61
[2021-01-16 07:12] VITALS: BP 135/71
[2021-01-16] MEDS: OMEPRAZOLE 20 MG CAPSULE.DR PO SCH ×2 (08:05→17:28)
[2021-01-16] MEDS: METOLAZONE 5 MG TABLET PO SCH (08:05)
[2021-01-16] MEDS: FUROSEMIDE 40 MG TABLET PO SCH ×2 (08:06→17:28)
[2021-01-16] MEDS: SODIUM CHLORIDE FLUSH 10ML SYR IVF SCH ×2 (09:00→21:57)
[2021-01-16 13:04] VITALS: BP 146/70
[2021-01-16] MEDS: DEXTROSE 70% IV SCH (21:57)
[2021-01-16] MEDS: STERILE WATER IV SCH (21:57)
[2021-01-16 22:00] VITALS: BP 138/72
[2021-01-16] MEDS ORDERED: TEMAZEPAM 15 MG CAPSULE ONE (22:19)
[2021-01-16] MEDS: TEMAZEPAM 15 MG CAPSULE PO PRN (22:21)
[2021-01-17 00:16] VITALS: BP 124/73
[2021-01-17 05:05] LABS: CHLORIDE 103 mmol/L (98-107)
[2021-01-17 05:09] LABS: ANION GAP 4 mmol/L (5-15); CALCIUM 6.9 mg/dL (8.5-10.1); CREATININE 2.19 mg/dL (0.55-1.02)
[2021-01-17] MEDS ORDERED: POTASSIUM CHLORIDE 20 MEQ TAB.ER.PRT PO ONE (07:00)
[2021-01-17 07:44] VITALS: BP 129/68
[2021-01-17] MEDS: METOLAZONE 5 MG TABLET PO SCH (07:48)
[2021-01-17] MEDS: FUROSEMIDE 40 MG TABLET PO SCH ×2 (07:49→17:03)
[2021-01-17] MEDS: OMEPRAZOLE 20 MG CAPSULE.DR PO SCH ×2 (07:49→17:02)
[2021-01-17] MEDS: SODIUM CHLORIDE FLUSH 10ML SYR IVF SCH ×2 (07:50→22:22)
[2021-01-17 13:06] VITALS: BP 127/71
[2021-01-17 19:11] VITALS: BP 130/83
[2021-01-17] MEDS ORDERED: DEXTROSE 70% IV SCH (19:30)
[2021-01-17] MEDS ORDERED: STERILE WATER IV SCH (19:30)
[2021-01-17] MEDS: TEMAZEPAM 15 MG CAPSULE PO PRN (22:22)
[2021-01-18 00:15] VITALS: BP 133/79
[2021-01-18 05:49] LABS: INTERNATIONAL NORMALIZED RATIO 1.13 (0.93-1.1); PROTHROMBIN TIME 12.1 Seconds (9.6-11.5)
[2021-01-18 05:51] LABS: CHLORIDE 106 mmol/L (98-107)
[2021-01-18 05:58] LABS: HCT (SEDRATE) 22.6 % (34.6-47.8)
[2021-01-18 06:10] LABS: ALANINE AMINOTRANSFERASE 20 U/L (12-78); ALBUMIN 1.2 g/dL (3.4-5.0); ALKALINE PHOSPHATASE 134 U/L (45-117); ANION GAP 2 mmol/L (5-15); BILIRUBIN,TOTAL 0.4 mg/dL (0.2-1.0); CALCIUM 7.3 mg/dL (8.5-10.1); CREATININE 2.07 mg/dL (0.55-1.02); TOTAL PROTEIN 5.9 g/dL (6.4-8.2)
[2021-01-18 07:10] VITALS: BP 147/76
[2021-01-18 07:18] LABS: BASOPHILS % (AUTO) 0 % (0-1); EOSINOPHILS % (AUTO) 16 % (1-7); LYMPHOCYTES % (AUTO) 11 % (22-44); MEAN CORPUSCULAR HEMOGLOBIN 29.1 pg (27.0-34.8); MEAN CORPUSCULAR HGB CONC 32.5 g/dL (32.4-35.8); MEAN PLATELET VOLUME 7.7 fL (7.4-10.4); MONOCYTES % (AUTO) 8 % (2-9); NEUTROPHILS % (AUTO) 65 % (42-75); PLATELET COUNT 163 x10^3/uL (130-400); RED BLOOD COUNT 2.57 x10^6/uL (3.82-5.3); RED CELL DISTRIBUTION WIDTH 16.4 % (9.6-15.2)
[2021-01-18 07:19] LABS: MD NO
[2021-01-18] MEDS: METOLAZONE 5 MG TABLET PO SCH (08:05)
[2021-01-18] MEDS: FUROSEMIDE 40 MG TABLET PO SCH ×2 (08:05→17:12)
[2021-01-18] MEDS: SODIUM CHLORIDE FLUSH 10ML SYR IVF SCH ×2 (08:05→20:06)
[2021-01-18] MEDS: OMEPRAZOLE 20 MG CAPSULE.DR PO SCH ×2 (08:05→17:12)
[2021-01-18 13:00] VITALS: BP 150/79
[2021-01-18] MEDS: ERGOCALCIFEROL 50,000 UNIT CAPSULE PO SCH (13:06)
[2021-01-18 18:59] VITALS: BP 147/75
[2021-01-19 02:08] VITALS: BP 148/80
[2021-01-19 05:04] LABS: BASOPHILS % (AUTO) 0 % (0-1); EOSINOPHILS % (AUTO) 15 % (1-7); LYMPHOCYTES % (AUTO) 11 % (22-44); MEAN CORPUSCULAR HEMOGLOBIN 29.2 pg (27.0-34.8); MEAN CORPUSCULAR HGB CONC 32.5 g/dL (32.4-35.8); MEAN PLATELET VOLUME 7.5 fL (7.4-10.4); MONOCYTES % (AUTO) 5 % (2-9); NEUTROPHILS % (AUTO) 69 % (42-75); PLATELET COUNT 192 x10^3/uL (130-400); RED BLOOD COUNT 2.55 x10^6/uL (3.82-5.3); RED CELL DISTRIBUTION WIDTH 16.5 % (9.6-15.2)
[2021-01-19 05:06] LABS: MD NO
[2021-01-19 05:07] LABS: ANION GAP 4 mmol/L (5-15); CHLORIDE 107 mmol/L (98-107)
[2021-01-19 05:08] LABS: CREATININE 2.32 mg/dL (0.55-1.02)
[2021-01-19 06:39] VITALS: BP 145/70
[2021-01-19] MEDS: FUROSEMIDE 40 MG TABLET PO SCH ×2 (07:40→17:05)
[2021-01-19] MEDS: METOLAZONE 5 MG TABLET PO SCH (07:40)
[2021-01-19] MEDS: OMEPRAZOLE 20 MG CAPSULE.DR PO SCH ×2 (07:40→17:05)
[2021-01-19] MEDS: SODIUM CHLORIDE FLUSH 10ML SYR IVF SCH ×2 (07:41→21:00)
[2021-01-19] MEDS: CEFTRIAXONE 1,000 MG in DEXTROSE 5% 50 ML IVPB SCH (11:25)
[2021-01-19 12:07] VITALS: BP 134/76
[2021-01-19 19:58] VITALS: BP 158/83
[2021-01-20] MEDS: morphine SULFATE 10 MG/ML, 1ML IVPush PRN (01:06)
[2021-01-20 02:04] VITALS: BP 129/73
[2021-01-20 05:34] LABS: BASOPHILS % (AUTO) 1 % (0-1); EOSINOPHILS % (AUTO) 17 % (1-7); LYMPHOCYTES % (AUTO) 11 % (22-44); MEAN CORPUSCULAR HEMOGLOBIN 29.8 pg (27.0-34.8); MEAN CORPUSCULAR HGB CONC 32.9 g/dL (32.4-35.8); MEAN PLATELET VOLUME 7.5 fL (7.4-10.4); MONOCYTES % (AUTO) 6 % (2-9); NEUTROPHILS % (AUTO) 65 % (42-75); PLATELET COUNT 222 x10^3/uL (130-400); RED BLOOD COUNT 2.45 x10^6/uL (3.82-5.3); RED CELL DISTRIBUTION WIDTH 16.3 % (9.6-15.2)
[2021-01-20 05:37] LABS: MD NO
[2021-01-20 05:47] LABS: ALBUMIN 1.2 g/dL (3.4-5.0); CHLORIDE 109 mmol/L (98-107)
[2021-01-20 05:48] LABS: CREATININE 2.58 mg/dL (0.55-1.02)
[2021-01-20 05:53] LABS: ANION GAP 4 mmol/L (5-15)
[2021-01-20 07:03] VITALS: BP 115/66
[2021-01-20] MEDS: METOLAZONE 5 MG TABLET PO SCH (08:22)
[2021-01-20] MEDS: SODIUM CHLORIDE FLUSH 10ML SYR IVF SCH (08:22)
[2021-01-20] MEDS: FUROSEMIDE 40 MG TABLET PO SCH ×2 (08:22→18:07)
[2021-01-20] MEDS: OMEPRAZOLE 20 MG CAPSULE.DR PO SCH ×2 (08:22→18:07)
[2021-01-20] MEDS: CEFTRIAXONE 1,000 MG in DEXTROSE 5% 50 ML IVPB SCH (13:11)
[2021-01-20] MEDS ORDERED: METO5TAB5 PO (15:23)
[2021-01-20] MEDS ORDERED: OMEP-110 PO (15:23)
[2021-01-20] MEDS ORDERED: FURO40TA6 PO (15:23)
[2021-01-20] MEDS ORDERED: DEXT4TAB31 PO (15:23)
[2021-01-20] MEDS ORDERED: CEFD300C37 PO (15:29)
[2021-01-20] MEDS ORDERED: ERGO500017 PO (15:35)
== END 2021-01-20 19:15 | disposition home or self-care (01) | DRG 469 ==
LOC: SUATTDRO 16:01 → ED 16:08 → 4WST 16:09 → ED 16:18 → UNDOADMOB 16:34 → EDIP 16:34 → 4WST 16:34 → 4EST 17:10 → EDIP 17:10 → 4WST 17:10 → 4EST 01-10 10:17 → 4WST 01-10 10:17 → INTOOBSV 01-10 14:53 → OBSVTOIN 01-10 14:53
PROVIDERS: ADMIT Internal Medicine; ATTEND Internal Medicine
PROC: 0TB13ZX Excision of Left Kidney, Percutaneous Approach, Diagnostic (ICD-10-PCS; principal; 2021-01-11)
PROC: 02HV33Z Insertion of Infusion Device into Superior Vena Cava, Percutaneous Approach (ICD-10-PCS; 2021-01-11)
PROC: B543ZZA Ultrasonography of Right Jugular Veins, Guidance (ICD-10-PCS; 2021-01-11)
PROC: 5A1D70Z Performance of Urinary Filtration, Intermittent, Less than 6 Hours Per Day (ICD-10-PCS; 2021-01-13)
PROC: 0JH63XZ Insertion of Tunneled Vascular Access Device into Chest Subcutaneous Tissue and Fascia, Percutaneous Approach (ICD-10-PCS; 2021-01-15)
PROC: 02HV33Z Insertion of Infusion Device into Superior Vena Cava, Percutaneous Approach (ICD-10-PCS; 2021-01-15)
PROC: B5181ZA Fluoroscopy of Superior Vena Cava using Low Osmolar Contrast, Guidance (ICD-10-PCS; 2021-01-15)
PROC: B543ZZA Ultrasonography of Right Jugular Veins, Guidance (ICD-10-PCS; 2021-01-15)
PROC: 5A1D70Z Performance of Urinary Filtration, Intermittent, Less than 6 Hours Per Day (ICD-10-PCS; 2021-01-17)
PROC: 5A1D70Z Performance of Urinary Filtration, Intermittent, Less than 6 Hours Per Day (ICD-10-PCS; 2021-01-18)
DX: N17.0 Acute kidney failure with tubular necrosis (principal); E11.22 Type 2 diabetes mellitus with diabetic chronic kidney disease; E11.649 Type 2 diabetes mellitus with hypoglycemia without coma; I95.9 Hypotension, unspecified; E66.01 Morbid (severe) obesity due to excess calories; E87.0 Hyperosmolality and hypernatremia; B96.1 Klebsiella pneumoniae [K. pneumoniae] as the cause of diseases classified elsewhere; D64.9 Anemia, unspecified; Z68.41 Body mass index [BMI] 40.0-44.9, adult; E83.51 Hypocalcemia; E87.2 Acidosis; E87.5 Hyperkalemia; E87.6 Hypokalemia; E87.70 Fluid overload, unspecified; E87.8 Other disorders of electrolyte and fluid balance, not elsewhere classified; E88.09 Other disorders of plasma-protein metabolism, not elsewhere classified; N04.9 Nephrotic syndrome with unspecified morphologic changes; N25.81 Secondary hyperparathyroidism of renal origin; N26.9 Renal sclerosis, unspecified; N18.6 End stage renal disease; N39.0 Urinary tract infection, site not specified; Z80.0 Family history of malignant neoplasm of digestive organs; Z99.2 Dependence on renal dialysis; Z90.49 Acquired absence of other specified parts of digestive tract; Z83.3 Family history of diabetes mellitus; Z80.9 Family history of malignant neoplasm, unspecified
CPT/HCPCS: J3490 ×3; 36415; 36556; 36558; 49083; 50200; 74176; 74177; 76937; 77012; 80048; 80053; 80069; 80074; 81001; 82306; 82310; 82330; 82436; 82533; 82570; 82728; 82947; 82962; 83519; 83525; 83540; 83550; 83690; 83735; 83883; 83970; 84100; 84133; 84145; 84155; 84156; 84165; 84166; 84206; 84300; 84305; 84484; 84681; 85025; 85045; 85610; 85651; 86140; 86480; 86706; 87077; 87086; 87186; 87205; 88300; 90935; 93005; 93306; 96374; 96375; 99156; 99157; G0378; J0696; J0881; J1940; J2250; J3010; P9047; Q9967; C1750; C1751; J1642; J2270; J2310; J7030; J7050

== ENCOUNTER 2021-05-22 14:12 | Inpatient (IN) | payer MEDICAID ==
[~2021-05-22] VITALS: Ht 157.5 cm; Wt 81.3 kg
[2021-05-22] VITALS (8 sets, daily range): BP systolic 84–105; BP diastolic 44–57
[~2021-05-22 14:12] MED LIST changes: +CEFD300C37 PO; +DEXT4TAB31 PO; +ERGO500017 PO; +FURO40TA6 PO; +METO5TAB5 PO
--- NOTE | 2021-05-22 14:30 | NUR ---
PT. 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 PT. STATES "I HAVEN'T HAD DIALYSIS IN 4 WEEKS". PT. ALSO STATES THE ONLY MEDICATION SHE TAKES IS VITAMIN D ONCE A WEEK. PT. DENIES NEEDING TO BE ON MEDS FOR DM, HTN. "THEY SAID I DON'T NEED THEM ANYMORE". DR. RAY TO BS FOR EVAL 1 SET OF BLOOD CULTURES AND LABS DRAWN.
--- NOTE | 2021-05-22 14:35 | NUR ---
REPORT TO MARYJANE DIEGO.
--- NOTE | 2021-05-22 14:38 | NUR ---
ASSUMED CARE OF PATIENT. DR HAS SEEN PATIENT. VS STABLE. CALL LIGHT IN PLACE. WILL CONTINUE TO MONITOR.
--- NOTE | 2021-05-22 14:55 | NUR ---
STERILE DRESSING CHANGED PERFORMED TO DIALYSIS PORT.
[2021-05-22] MEDS ORDERED: VANCOMYCIN PER PHARMACY MC ONE (15:00)
[2021-05-22] MEDS ORDERED: SODIUM CHLORIDE 0.9% 1,000ML IVBOLUS ONE (15:00)
[2021-05-22] MEDS ORDERED: CEFTRIAXONE 2 GM in DEXTROSE 5% 50 ML IVPB ONE (15:00)
[2021-05-22 15:06] LABS: MEAN CORPUSCULAR HEMOGLOBIN 27.1 pg (27.0-34.8); MEAN PLATELET VOLUME 6.8 fL (7.4-10.4); PLATELET COUNT 452 x10^3/uL (130-400); RED BLOOD COUNT 1.74 x10^6/uL (3.82-5.3); RED CELL DISTRIBUTION WIDTH 17.1 % (9.6-15.2)
[2021-05-22 15:11] LABS: ALBUMIN 0.7 g/dL (3.4-5.0); ANION GAP 9 mmol/L (5-15); CALCIUM 7.5 mg/dL (8.5-10.1); CHLORIDE 114 mmol/L (98-107)
--- NOTE | 2021-05-22 15:13 | NUR ---
both blood cultures drawn before abx
[2021-05-22 15:14] LABS: ALANINE AMINOTRANSFERASE 16 U/L (12-78); ALKALINE PHOSPHATASE 163 U/L (45-117); BILIRUBIN,TOTAL 0.4 mg/dL (0.2-1.0); CREATININE 5.32 mg/dL (0.55-1.02); TOTAL PROTEIN 7.5 g/dL (6.4-8.2)
[2021-05-22 15:40] LABS: MEAN CORPUSCULAR HGB CONC 29.8 g/dL (32.4-35.8)
[2021-05-22 16:00] LABS: BAND#(MANUAL) 0.73 x10^3/uL; BANDS%(MANUAL) 3 % (0-7); LYMPHS% (MANUAL) 7 % (22-44)
[2021-05-22] MEDS ORDERED: VANCOMYCIN 2,000 MG in SODIUM CHLORIDE 0.9% 500 ML IV ONE (16:00)
[2021-05-22 16:01] LABS: SEGS% (MANUAL) 88 % (42-75)
[2021-05-22 16:02] LABS: ANISOCYTOSIS 1+; HYPOCHROMIA 1+; MONOS#(MANUAL) 0.49 x10^3/uL (0.3-2.7); MONOS% (MANUAL) 2 % (2-9); SEG#(MANUAL) 21.38 x10^3/uL (1.8-6.8)
[2021-05-22 16:03] LABS: <PLATELET ESTIMATE> INCREASED; <PLT MORPHOLOGY> NORMAL PLT MORPH
--- NOTE | 2021-05-22 16:31 | NUR ---
fluids stopped per dr law.
--- NOTE | 2021-05-22 16:47 | NUR ---
DR JAY WITH NEPHRO HAS SEEN PATIENT. PT TO GO TO IR AND GET A TEMP DIALYSIS CATHETER PLACED.
--- NOTE | 2021-05-22 16:48 | NUR ---
IR IR DOC IN ROOM TALKING WITH PATIENT
[2021-05-22] MEDS ORDERED: SODIUM BICARBONATE 8.4% 150 MEQ in DEXTROSE 5% 1,000 ML IV SCH (17:00)
--- NOTE | 2021-05-22 17:00 | NUR ---
BLOOD SLIP SENT
--- NOTE | 2021-05-22 17:10 | NUR ---
DR TILLMAN AT BEDSIDE. PROVIDER WANTS DEXTROSE GIVEN, FSBS [id number]
--- NOTE | 2021-05-22 17:22 | NUR ---
SPOKE WITH DR TILLMAN, PROVIDER DOES NOT WANT ANY MORE FLUIDS.
--- NOTE | 2021-05-22 17:26 | NUR ---
BOLUS WAS RUNNING SLOWLY. PT ONLY GOT 300 MLS OF 1000 ML BOLUS. FLUIDS STOPPED PER DR RAY. DR JAY ALSO WANTED BOLUS STOPPED. SPOKE WITH DR TILLMAN, PROVIDER ALSO DOES NOT WANT THE BOLUS.
--- NOTE | 2021-05-22 17:28 | NUR ---
LAB IN ROOM
[2021-05-22] MEDS ORDERED: GLUCAGON 1 MG IM PRN (17:30)
[2021-05-22] MEDS ORDERED: DARBEPOETIN 60 MCG/ML SQ SCH (17:30)
[2021-05-22] MEDS ORDERED: DEXTROSE 10% 100 ML IV SCH (17:30)
[2021-05-22] MEDS ORDERED: DEXTROSE 4 GM TAB.CHEW PO PRN ×2 (17:30→22:30)
[2021-05-22] MEDS ORDERED: DEXTROSE 50%, 50ML SYRINGE IVPush PRN (17:30)
[2021-05-22] MEDS ORDERED: PHARMACY MAY ADJ FOR RENAL FX MC PRN (17:30)
[2021-05-22 17:55] LABS: ABSOLUTE RETICS # 0.039 x10^6/uL (0.5-2.5); RED BLOOD COUNT 1.73 x10^6/uL (3.82-5.3); RETICULOCYTE COUNT % 2.26 % (0.5-1.5)
--- NOTE | 2021-05-22 17:57 | NUR ---
ORTHO IN ROOM
[2021-05-22] MEDS ORDERED: ARANESP 200 MCG/ML **ESRD SQ SCH (18:00)
[2021-05-22] MEDS ORDERED: ONDANSETRON ODT 4 MG PO PRN (18:00)
[2021-05-22] MEDS ORDERED: FENTANYL PF 100 MCG/2ML ONE (18:09)
[2021-05-22] MEDS ORDERED: NALOXONE 1 MG/ML, 2ML ONE (18:09)
[2021-05-22] MEDS ORDERED: MIDAZOLAM 1 MG/ML, 5ML ONE (18:09)
[2021-05-22] MEDS ORDERED: FLUMAZENIL 0.1 MG/1 ML, 5ML ONE (18:09)
--- NOTE | 2021-05-22 18:26 | NUR ---
BEDSIDE REPORT GIVEN TO THE IR NURSE. BLOOD RUNNING, PT TO IR FOR DIALYSIS TEMP CATH. REPORT CALLED INTO MARYJANE CHIN ON TELE 2. PT WILL GO FROM IR TO THE FLOOR. MARYJANE CHIN AWARE.
[2021-05-22] MEDS ORDERED: LIDOCAINE 1%, 20ML ONE (18:32)
[2021-05-22] MEDS ORDERED: MEROPENEM 1 GM in SODIUM CHLORIDE 0.9% 100 ML IV ONE (19:30)
[2021-05-22] MEDS ORDERED: MORPHINE SULFATE 4 MG/ML, 1ML ONE (21:07)
[2021-05-22] MEDS: morphine SULFATE 10 MG/ML, 1ML IVPush PRN (21:13)
[2021-05-22] MEDS: SODIUM CHLORIDE FLUSH 10ML SYR IVF SCH (23:10)
[2021-05-22 23:16] LABS: MICROSCOPIC INDICATED
[2021-05-22 23:25] LABS: CHLORIDE,URINE RANDOM 14 mmol/L; POTASSIUM,URINE RANDOM 32 mmol/L; SODIUM,URINE RANDOM 14 mmol/L
[2021-05-23] VITALS (8 sets, daily range): BP systolic 82–129; BP diastolic 41–75
[2021-05-23] MEDS ORDERED: NOREPINEPHRINE 8 MG in SODIUM CHLORIDE 0.9% 242 ML IV PRN (00:30)
[2021-05-23] MEDS ORDERED: MORPHINE SULFATE 4 MG/ML, 1ML ONE (04:52)
[2021-05-23] MEDS: morphine SULFATE 10 MG/ML, 1ML IVPush PRN ×3 (04:57→14:34)
[2021-05-23 05:12] LABS: MEAN CORPUSCULAR HGB CONC 32.3 g/dL (32.4-35.8); MEAN PLATELET VOLUME 6.7 fL (7.4-10.4); PLATELET COUNT 387 x10^3/uL (130-400); RED BLOOD COUNT 3.64 x10^6/uL (3.82-5.3); RED CELL DISTRIBUTION WIDTH 16.2 % (9.6-15.2)
[2021-05-23 05:20] LABS: ANION GAP 7 mmol/L (5-15); CALCIUM 7.4 mg/dL (8.5-10.1); CHLORIDE 108 mmol/L (98-107); CREATININE 2.29 mg/dL (0.55-1.02)
[2021-05-23 05:21] LABS: ALANINE AMINOTRANSFERASE 20 U/L (12-78); ALBUMIN 0.8 g/dL (3.4-5.0)
[2021-05-23 05:23] LABS: ALKALINE PHOSPHATASE 171 U/L (45-117); BILIRUBIN,TOTAL 0.9 mg/dL (0.2-1.0); TOTAL PROTEIN 7.2 g/dL (6.4-8.2)
[2021-05-23 05:47] LABS: ANISOCYTOSIS 1+; BAND#(MANUAL) 2.12 x10^3/uL; BANDS%(MANUAL) 10 % (0-7); LYMPH#(MANUAL) 0.42 x10^3/uL (1-3.4); LYMPHS% (MANUAL) 2 % (22-44); MONOS#(MANUAL) 0.21 x10^3/uL (0.3-2.7); MONOS% (MANUAL) 1 % (2-9); SEG#(MANUAL) 18.44 x10^3/uL (1.8-6.8); SEGS% (MANUAL) 87 % (42-75)
[2021-05-23 05:48] LABS: <PLATELET ESTIMATE> ADEQUATE; <PLT MORPHOLOGY> NORMAL PLT MORPH
[2021-05-23 08:27] LABS: HCT (SEDRATE) 29.4 % (34.6-47.8)
[2021-05-23] MEDS: MEROPENEM 500 MG in SODIUM CHLORIDE 0.9% 100 ML IV SCH ×2 (09:29→22:43)
[2021-05-23] MEDS: SODIUM CHLORIDE FLUSH 10ML SYR IVF SCH ×2 (09:29→20:43)
[2021-05-23] MEDS: ALBUMIN HUMAN 25% 100 ML IV PRN ×2 (12:21→12:22)
[2021-05-23] MEDS ORDERED: COSYNTROPIN 0.25 MG IV ONE (14:30)
[2021-05-23] MEDS: MIDODRINE 5 MG TABLET PO SCH ×2 (15:57→20:42)
[2021-05-23] MEDS: OXYcodone IR 5MG TABLET PO PRN ×2 (15:57→20:51)
[2021-05-23] MEDS: ONDANSETRON 2MG/ML, 2ML IVPush PRN (20:55)
[2021-05-24 01:46] VITALS: BP 128/63
[2021-05-24 05:31] LABS: INTERNATIONAL NORMALIZED RATIO 1.13 (0.93-1.1)
[2021-05-24 05:36] LABS: MEAN CORPUSCULAR HEMOGLOBIN 28.1 pg (27.0-34.8); MEAN CORPUSCULAR HGB CONC 32.3 g/dL (32.4-35.8); MEAN PLATELET VOLUME 6.9 fL (7.4-10.4); PLATELET COUNT 378 x10^3/uL (130-400); RED BLOOD COUNT 3.33 x10^6/uL (3.82-5.3); RED CELL DISTRIBUTION WIDTH 16.8 % (9.6-15.2)
[2021-05-24 05:37] LABS: ALBUMIN 1.3 g/dL (3.4-5.0); ANION GAP 6 mmol/L (5-15); CALCIUM 7.4 mg/dL (8.5-10.1); CHLORIDE 106 mmol/L (98-107)
[2021-05-24 05:40] LABS: ALANINE AMINOTRANSFERASE 15 U/L (12-78); ALKALINE PHOSPHATASE 150 U/L (45-117); BILIRUBIN,TOTAL 0.6 mg/dL (0.2-1.0); CREATININE 2.55 mg/dL (0.55-1.02); TOTAL PROTEIN 7.2 g/dL (6.4-8.2)
[2021-05-24 06:18] LABS: ANISOCYTOSIS 1+; BAND#(MANUAL) 2.06 x10^3/uL; BANDS%(MANUAL) 9 % (0-7); HYPOCHROMIA 1+; LYMPH#(MANUAL) 0.23 x10^3/uL (1-3.4); LYMPHS% (MANUAL) 1 % (22-44); MONOS#(MANUAL) 0.92 x10^3/uL (0.3-2.7); MONOS% (MANUAL) 4 % (2-9); SEG#(MANUAL) 19.69 x10^3/uL (1.8-6.8); SEGS% (MANUAL) 86 % (42-75)
[2021-05-24 06:19] LABS: <PLATELET ESTIMATE> ADEQUATE; <PLT MORPHOLOGY> NORMAL PLT MORPH
[2021-05-24 06:46] VITALS: BP 124/68
[2021-05-24] MEDS ORDERED: VANCOMYCIN PER PHARMACY MC PRN (07:00)
[2021-05-24] MEDS ORDERED: PHARMACOKINETIC MONITORING MC PRN (07:30)
[2021-05-24] MEDS: ONDANSETRON 2MG/ML, 2ML IVPush PRN (08:02)
[2021-05-24] MEDS: morphine SULFATE 10 MG/ML, 1ML IVPush PRN ×3 (08:08→22:39)
[2021-05-24] MEDS: MIDODRINE 5 MG TABLET PO SCH ×3 (09:55→20:15)
[2021-05-24] MEDS ORDERED: VANCOMYCIN 1,500 MG in SODIUM CHLORIDE 0.9% 250 ML IV ONE (10:00)
[2021-05-24] MEDS: SODIUM CHLORIDE FLUSH 10ML SYR IVF SCH ×2 (10:37→20:15)
[2021-05-24] MEDS: MEROPENEM 500 MG in SODIUM CHLORIDE 0.9% 100 ML IV SCH (12:28)
[2021-05-24] MEDS ORDERED: OXYcodone 5 MG/5 ML ORAL.SOL UDC PO PRN (13:30)
[2021-05-24] MEDS ORDERED: PROMETHAZINE 25 MG/ML, 1ML IVPush PRN (13:30)
[2021-05-24] MEDS ORDERED: LABETALOL 5MG/ML, 20ML IV PRN (13:30)
[2021-05-24] MEDS ORDERED: ONDANSETRON 2MG/ML, 2ML IVPush PRN (13:30)
[2021-05-24] MEDS ORDERED: hydrALAzine 20 MG/ML, 1ML IV PRN (13:30)
[2021-05-24] MEDS ORDERED: CHLORHEXIDINE 15 ML UDC ONE (14:01)
[2021-05-24] MEDS ORDERED: FENTANYL PF 250 MCG/5ML ONE (14:12)
[2021-05-24] MEDS ORDERED: PROPOFOL 10 MG/ML, 20ML ONE (15:12)
[2021-05-24] MEDS ORDERED: DEXAMETHASONE 4 MG/ML, 1ML ONE (15:12)
[2021-05-24] MEDS ORDERED: ONDANSETRON 2MG/ML, 2ML ONE (15:12)
[2021-05-24] MEDS ORDERED: SUCCINYLCHOLINE 20 MG/ML, 10ML ONE (15:13)
[2021-05-24] MEDS ORDERED: FENTANYL PF 100 MCG/2ML ONE ×2 (16:09→16:54)
[2021-05-24] MEDS ORDERED: OXYcodone 5 MG/5 ML ORAL.SOL UDC ONE (16:10)
[2021-05-24] MEDS: FENTANYL PF 100 MCG/2ML IV PRN ×3 (16:13→16:57)
[2021-05-24] MEDS ORDERED: HYDROmorphone 2 MG/ML, 1ML ONE (16:26)
[2021-05-24] MEDS: HYDROmorphone 1 MG/ML, 1ML INJ IVPush PRN ×2 (16:32→16:44)
[2021-05-24 17:54] VITALS: BP 147/67
[2021-05-24 19:58] VITALS: BP 135/73
[2021-05-25 00:19] VITALS: BP 132/74
[2021-05-25] MEDS: MEROPENEM 500 MG in SODIUM CHLORIDE 0.9% 100 ML IV SCH ×2 (00:45→12:29)
[2021-05-25] MEDS: morphine SULFATE 10 MG/ML, 1ML IVPush PRN ×2 (02:26→10:08)
[2021-05-25] MEDS: OXYcodone IR 5MG TABLET PO PRN ×3 (04:22→17:39)
[2021-05-25 06:08] LABS: ANION GAP 6 mmol/L (5-15); CALCIUM 7.5 mg/dL (8.5-10.1); CHLORIDE 106 mmol/L (98-107); CREATININE 2.39 mg/dL (0.55-1.02)
[2021-05-25 06:09] LABS: ALANINE AMINOTRANSFERASE 18 U/L (12-78); ALBUMIN 1.2 g/dL (3.4-5.0)
[2021-05-25 06:10] LABS: ALKALINE PHOSPHATASE 149 U/L (45-117); BILIRUBIN,TOTAL 0.5 mg/dL (0.2-1.0); TOTAL PROTEIN 7.4 g/dL (6.4-8.2)
[2021-05-25 06:11] LABS: BASOPHILS % (AUTO) 0 % (0-1); EOSINOPHILS % (AUTO) 0 % (1-7); LYMPHOCYTES % (AUTO) 4 % (22-44); MEAN CORPUSCULAR HEMOGLOBIN 28.4 pg (27.0-34.8); MEAN CORPUSCULAR HGB CONC 32.3 g/dL (32.4-35.8); MONOCYTES % (AUTO) 3 % (2-9); NEUTROPHILS % (AUTO) 93 % (42-75); PLATELET COUNT 405 x10^3/uL (130-400); RED CELL DISTRIBUTION WIDTH 16.7 % (9.6-15.2)
[2021-05-25 08:43] VITALS: BP 113/65
[2021-05-25] MEDS: MIDODRINE 5 MG TABLET PO SCH ×3 (08:54→20:47)
[2021-05-25] MEDS: SODIUM CHLORIDE FLUSH 10ML SYR IVF SCH ×2 (12:29→20:46)
[2021-05-25 15:09] VITALS: BP 122/84
[2021-05-25] MEDS: GABAPENTIN 100 MG CAPSULE PO SCH ×2 (17:39→20:47)
[2021-05-25 20:26] VITALS: BP 154/77
[2021-05-26 00:03] VITALS: BP 137/73
[2021-05-26] MEDS: MEROPENEM 500 MG in SODIUM CHLORIDE 0.9% 100 ML IV SCH (00:33)
[2021-05-26 08:03] VITALS: BP 152/77
[2021-05-26] MEDS: MIDODRINE 5 MG TABLET PO SCH ×3 (09:00→20:53)
[2021-05-26] MEDS: GABAPENTIN 100 MG CAPSULE PO SCH ×3 (09:00→20:53)
[2021-05-26] MEDS ORDERED: CEFAZOLIN 3,000 MG in DEXTROSE 5% 100 ML IV SCH (09:00)
[2021-05-26] MEDS: OXYcodone IR 5MG TABLET PO PRN ×2 (10:53→20:54)
[2021-05-26 16:00] VITALS: BP 130/71
[2021-05-26] MEDS ORDERED: VANCOMYCIN IV SCH (17:00)
[2021-05-26] MEDS ORDERED: SODIUM CHLORIDE 0.9% IV SCH (17:00)
[2021-05-26] MEDS: SODIUM CHLORIDE FLUSH 10ML SYR IVF SCH ×2 (18:47→21:00)
[2021-05-26 19:47] VITALS: BP 131/73
[2021-05-27 00:05] VITALS: BP 140/81
[2021-05-27 04:20] LABS: MEAN CORPUSCULAR HEMOGLOBIN 28.5 pg (27.0-34.8); MEAN CORPUSCULAR HGB CONC 32.1 g/dL (32.4-35.8); MEAN PLATELET VOLUME 6.7 fL (7.4-10.4); PLATELET COUNT 356 x10^3/uL (130-400); RED BLOOD COUNT 3.45 x10^6/uL (3.82-5.3); RED CELL DISTRIBUTION WIDTH 16.1 % (9.6-15.2)
[2021-05-27 04:30] LABS: CHLORIDE 105 mmol/L (98-107)
[2021-05-27 04:38] LABS: ANION GAP 2 mmol/L (5-15); CALCIUM 7.2 mg/dL (8.5-10.1); CREATININE 2.53 mg/dL (0.55-1.02)
[2021-05-27 04:54] LABS: ANISOCYTOSIS 1+; EOS#(MANUAL) 0.57 x10^3/uL (0.0-0.4); EOS% (MANUAL) 5 % (1-7); LYMPH#(MANUAL) 0.34 x10^3/uL (1-3.4); LYMPHS% (MANUAL) 3 % (22-44); METAMYELOCYTES# (MANUAL) 0.34 x10^3/uL (0-0); METAMYELOCYTES% (MANUAL) 3 % (0-1); MONOS#(MANUAL) 0.46 x10^3/uL (0.3-2.7); MONOS% (MANUAL) 4 % (2-9); MYELOCYTES# (MANUAL) 0.11 x10^3/uL (0-0); MYELOCYTES% (MANUAL) 1 % (0-0); SEG#(MANUAL) 9.58 x10^3/uL (1.8-6.8); SEGS% (MANUAL) 84 % (42-75)
[2021-05-27 04:57] LABS: HYPOCHROMIA 1+
[2021-05-27 04:58] LABS: <PLATELET ESTIMATE> ADEQUATE; <PLT MORPHOLOGY> NORMAL PLT MORPH
[2021-05-27] MEDS: OXYcodone IR 5MG TABLET PO PRN (05:32)
[2021-05-27 08:12] VITALS: BP 132/74
[2021-05-27] MEDS: MIDODRINE 5 MG TABLET PO SCH ×3 (08:17→21:08)
[2021-05-27] MEDS: GABAPENTIN 100 MG CAPSULE PO SCH ×3 (08:17→21:08)
[2021-05-27] MEDS: SODIUM CHLORIDE FLUSH 10ML SYR IVF SCH ×2 (08:18→21:08)
[2021-05-27 11:00] LABS: ALANINE AMINOTRANSFERASE 14 U/L (12-78)
[2021-05-27 11:02] LABS: ALKALINE PHOSPHATASE 117 U/L (45-117); BILIRUBIN,TOTAL 0.4 mg/dL (0.2-1.0); TOTAL PROTEIN 6.8 g/dL (6.4-8.2)
[2021-05-27] MEDS: LACTULOSE 20 GM/30 ML UDC PO SCH (11:39)
[2021-05-27] MEDS ORDERED: NALOXONE 1 MG/ML, 2ML ONE (13:13)
[2021-05-27] MEDS ORDERED: NALOXONE 0.4 MG/ML, 1ML ONE (13:13)
[2021-05-27 13:26] VITALS: BP 98/61
[2021-05-27] MEDS ORDERED: NALOXONE 0.4 MG/ML, 1ML IVPush ONE (13:30)
[2021-05-27 14:15] LABS: ALANINE AMINOTRANSFERASE 18 U/L (12-78); ANION GAP 6 mmol/L (5-15); CHLORIDE 104 mmol/L (98-107); CREATININE 3.16 mg/dL (0.55-1.02)
[2021-05-27 14:17] LABS: ALKALINE PHOSPHATASE 123 U/L (45-117); BILIRUBIN,TOTAL 0.5 mg/dL (0.2-1.0); TOTAL PROTEIN 6.9 g/dL (6.4-8.2)
[2021-05-27 19:21] VITALS: BP 149/88
[2021-05-27 22:40] LABS: OCCULT BLOOD POSITIVE (NEGATIVE)
[2021-05-28] MEDS: ACETAMINOPHEN 325 MG TABLET PO PRN ×2 (00:08→16:46)
[2021-05-28 01:18] VITALS: BP 144/85
[2021-05-28 07:07] VITALS: BP 152/84
[2021-05-28 08:37] VITALS: BP 136/77
[2021-05-28] MEDS ORDERED: DEXTROSE 10%, 1,000ML IV SCH (09:30)
[2021-05-28] MEDS ORDERED: DEXTROSE 10% 1,000 ML IV SCH (09:30)
[2021-05-28] MEDS ORDERED: FLUMAZENIL 0.1 MG/1 ML, 5ML ONE (09:46)
[2021-05-28] MEDS ORDERED: FENTANYL PF 100 MCG/2ML ONE (09:46)
[2021-05-28] MEDS ORDERED: MIDAZOLAM 1 MG/ML, 5ML ONE ×2 (09:46→11:17)
[2021-05-28] MEDS ORDERED: NALOXONE 1 MG/ML, 2ML ONE (09:46)
[2021-05-28] MEDS ORDERED: LIDOCAINE 1%, 10ML ONE (09:52)
[2021-05-28] MEDS ORDERED: LIDOCAINE 1%, 20ML ONE (09:52)
[2021-05-28] MEDS: GABAPENTIN 100 MG CAPSULE PO SCH ×3 (11:55→20:52)
[2021-05-28] MEDS: SODIUM CHLORIDE FLUSH 10ML SYR IVF SCH ×2 (12:06→20:53)
[2021-05-28] MEDS: LACTULOSE 20 GM/30 ML UDC PO SCH (12:06)
[2021-05-28] MEDS: MIDODRINE 5 MG TABLET PO SCH ×3 (12:18→20:52)
[2021-05-28 12:21] VITALS: BP 123/74
[2021-05-28 16:15] VITALS: BP 157/78
[2021-05-28] MEDS: OXYcodone IR 5MG TABLET PO PRN (18:02)
[2021-05-28 19:39] LABS: OCCULT BLOOD POSITIVE (NEGATIVE)
[2021-05-28 20:05] VITALS: BP 149/72
[2021-05-29] MEDS: OXYcodone IR 5MG TABLET PO PRN ×2 (00:23→16:48)
[2021-05-29 01:26] VITALS: BP 138/65
[2021-05-29 06:39] LABS: MEAN CORPUSCULAR HEMOGLOBIN 28.8 pg (27.0-34.8); MEAN CORPUSCULAR HGB CONC 32.4 g/dL (32.4-35.8); MEAN PLATELET VOLUME 6.9 fL (7.4-10.4); PLATELET COUNT 330 x10^3/uL (130-400); RED BLOOD COUNT 3.44 x10^6/uL (3.82-5.3); RED CELL DISTRIBUTION WIDTH 15.9 % (9.6-15.2)
[2021-05-29 06:51] LABS: ALBUMIN 1.1 g/dL (3.4-5.0); ANION GAP 7 mmol/L (5-15); CALCIUM 6.8 mg/dL (8.5-10.1); CHLORIDE 104 mmol/L (98-107)
[2021-05-29 06:54] LABS: ALANINE AMINOTRANSFERASE 13 U/L (12-78); ALKALINE PHOSPHATASE 102 U/L (45-117); BILIRUBIN,TOTAL 0.4 mg/dL (0.2-1.0); CREATININE 3.67 mg/dL (0.55-1.02); TOTAL PROTEIN 6.3 g/dL (6.4-8.2)
[2021-05-29 07:25] LABS: BAND#(MANUAL) 0.22 x10^3/uL; BANDS%(MANUAL) 2 % (0-7); EOS#(MANUAL) 0.54 x10^3/uL (0.0-0.4); EOS% (MANUAL) 5 % (1-7); LYMPH#(MANUAL) 0.11 x10^3/uL (1-3.4); LYMPHS% (MANUAL) 1 % (22-44); METAMYELOCYTES# (MANUAL) 0.54 x10^3/uL (0-0); METAMYELOCYTES% (MANUAL) 5 % (0-1); SEGS% (MANUAL) 87 % (42-75)
[2021-05-29 07:26] LABS: <PLATELET ESTIMATE> ADEQUATE; <PLT MORPHOLOGY> NORMAL PLT MORPH; ANISOCYTOSIS 1+; HYPOCHROMIA 1+; POLYCHROMASIA 1+
[2021-05-29 07:45] VITALS: BP 127/81
[2021-05-29] MEDS ORDERED: CEFAZOLIN PMX 2GM/50ML 50 ML IVPB SCH (09:00)
[2021-05-29] MEDS: MIDODRINE 5 MG TABLET PO SCH ×3 (09:00→20:55)
[2021-05-29] MEDS: LACTULOSE 20 GM/30 ML UDC PO SCH (09:00)
[2021-05-29] MEDS ORDERED: DEXTROSE 10% 1,000 ML IV SCH (09:30)
[2021-05-29 09:36] VITALS: BP 149/76
[2021-05-29] MEDS: GABAPENTIN 100 MG CAPSULE PO SCH ×3 (09:38→20:55)
[2021-05-29] MEDS ORDERED: ARANESP 200 MCG/ML **ESRD SQ SCH (16:30)
[2021-05-29 16:42] VITALS: BP 141/83
[2021-05-29] MEDS: SODIUM CHLORIDE FLUSH 10ML SYR IVF SCH ×2 (16:50→20:55)
[2021-05-29 20:11] VITALS: BP 135/71
[2021-05-30] MEDS: OXYcodone IR 5MG TABLET PO PRN ×5 (00:19→21:16)
[2021-05-30 00:54] VITALS: BP 156/64
[2021-05-30 07:15] VITALS: BP 154/81
[2021-05-30] MEDS: LACTULOSE 20 GM/30 ML UDC PO SCH (08:05)
[2021-05-30] MEDS: GABAPENTIN 100 MG CAPSULE PO SCH ×3 (08:06→21:02)
[2021-05-30] MEDS: MIDODRINE 5 MG TABLET PO SCH ×2 (08:25→21:02)
[2021-05-30] MEDS: SODIUM CHLORIDE FLUSH 10ML SYR IVF SCH ×2 (08:27→21:03)
[2021-05-30 11:44] LABS: ALBUMIN 1.1 g/dL (3.4-5.0); ANION GAP 6 mmol/L (5-15); CALCIUM 6.6 mg/dL (8.5-10.1); CHLORIDE 100 mmol/L (98-107)
[2021-05-30 11:45] LABS: MEAN CORPUSCULAR HEMOGLOBIN 28.7 pg (27.0-34.8); MEAN CORPUSCULAR HGB CONC 32.5 g/dL (32.4-35.8); PLATELET COUNT 249 x10^3/uL (130-400); RED BLOOD COUNT 3.42 x10^6/uL (3.82-5.3); RED CELL DISTRIBUTION WIDTH 15.9 % (9.6-15.2)
[2021-05-30 11:48] LABS: ALANINE AMINOTRANSFERASE 12 U/L (12-78); ALKALINE PHOSPHATASE 104 U/L (45-117); BILIRUBIN,TOTAL 0.5 mg/dL (0.2-1.0); CREATININE 2.56 mg/dL (0.55-1.02); TOTAL PROTEIN 6.5 g/dL (6.4-8.2)
[2021-05-30] MEDS ORDERED: ERGOCALCIFEROL 50,000 UNIT CAPSULE PO SCH (12:00)
[2021-05-30 12:47] LABS: BAND#(MANUAL) 0.22 x10^3/uL; BANDS%(MANUAL) 2 % (0-7); EOS#(MANUAL) 0.77 x10^3/uL (0.0-0.4); EOS% (MANUAL) 7 % (1-7); LYMPH#(MANUAL) 0.33 x10^3/uL (1-3.4); LYMPHS% (MANUAL) 3 % (22-44); METAMYELOCYTES# (MANUAL) 0.11 x10^3/uL (0-0); METAMYELOCYTES% (MANUAL) 1 % (0-1); MONOS#(MANUAL) 0.22 x10^3/uL (0.3-2.7); MONOS% (MANUAL) 2 % (2-9); SEG#(MANUAL) 9.35 x10^3/uL (1.8-6.8); SEGS% (MANUAL) 85 % (42-75)
[2021-05-30 12:48] LABS: ANISOCYTOSIS 1+; POLYCHROMASIA 1+
[2021-05-30 12:50] LABS: <PLATELET ESTIMATE> ADEQUATE; <PLT MORPHOLOGY> NORMAL PLT MORPH
[2021-05-30 13:48] VITALS: BP 113/65
[2021-05-30 19:07] VITALS: BP 118/70
[2021-05-31 02:02] VITALS: BP 130/76
[2021-05-31] MEDS: OXYcodone IR 5MG TABLET PO PRN (02:08)
[2021-05-31] MEDS ORDERED: NALOXONE 0.4 MG/ML, 1ML IVPush PRN (05:00)
[2021-05-31] MEDS ORDERED: CALCIUM CHLORIDE 13.6 MEQ/10 ML ONE (05:03)
[2021-05-31] MEDS ORDERED: DEXTROSE 50%, 50ML SYRINGE ONE (05:03)
[2021-05-31] MEDS ORDERED: ROCURONIUM 10MG/ML,5ML ONE (05:03)
[2021-05-31] MEDS ORDERED: SODIUM BICARB 8.4%, 50ML SYRINGE ONE (05:03)
[2021-05-31] MEDS ORDERED: EPINEPHRINE SYRINGE 0.1 MG/ML, 10ML ONE (05:03)
[2021-05-31] MEDS ORDERED: NOREPINEPHRINE 1 MG/ML, 4ML ONE (05:29)
[2021-05-31] MEDS ORDERED: NOREPINEPHRINE 8 MG in SODIUM CHLORIDE 0.9% 242 ML IV PRN (06:00)
[2021-05-31] MEDS ORDERED: VASOPRESSIN 20 UNIT in SODIUM CHLORIDE 0.9% 99 ML IV PRN (06:00)
[2021-05-31 06:39] LABS: MEAN CORPUSCULAR HEMOGLOBIN 28.1 pg (27.0-34.8); MEAN CORPUSCULAR HGB CONC 31.3 g/dL (32.4-35.8); PLATELET COUNT 265 x10^3/uL (130-400); RED BLOOD COUNT 3.68 x10^6/uL (3.82-5.3); RED CELL DISTRIBUTION WIDTH 16.2 % (9.6-15.2)
[2021-05-31 06:49] LABS: ALANINE AMINOTRANSFERASE 84 U/L (12-78); ALBUMIN 1.1 g/dL (3.4-5.0); ANION GAP 8 mmol/L (5-15); CALCIUM 7.7 mg/dL (8.5-10.1); CHLORIDE 98 mmol/L (98-107); CREATININE 3.45 mg/dL (0.55-1.02)
[2021-05-31 06:51] LABS: ALKALINE PHOSPHATASE 130 U/L (45-117); BILIRUBIN,TOTAL 0.6 mg/dL (0.2-1.0)
[2021-05-31 07:03] LABS: BANDS%(MANUAL) 15 % (0-7); EOS#(MANUAL) 0.37 x10^3/uL (0.0-0.4); EOS% (MANUAL) 1 % (1-7); LYMPH#(MANUAL) 1.49 x10^3/uL (1-3.4); LYMPHS% (MANUAL) 4 % (22-44); METAMYELOCYTES# (MANUAL) 0.37 x10^3/uL (0-0); METAMYELOCYTES% (MANUAL) 1 % (0-1); SEG#(MANUAL) 29.47 x10^3/uL (1.8-6.8); SEGS% (MANUAL) 79 % (42-75)
[2021-05-31 07:04] LABS: ANISOCYTOSIS 1+; POLYCHROMASIA 1+
[2021-05-31 07:05] LABS: <PLATELET ESTIMATE> ADEQUATE; <PLT MORPHOLOGY> NORMAL PLT MORPH
[2021-05-31] MEDS: MIDODRINE 5 MG TABLET PO SCH ×2 (08:46→20:18)
[2021-05-31] MEDS: LACTULOSE 20 GM/30 ML UDC PO SCH (08:46)
[2021-05-31] MEDS: GABAPENTIN 100 MG CAPSULE PO SCH ×3 (08:46→20:18)
[2021-05-31] MEDS: SODIUM CHLORIDE FLUSH 10ML SYR IVF SCH ×2 (08:46→20:18)
[2021-05-31] MEDS ORDERED: CEFAZOLIN PMX 2GM/50ML 50 ML IVPB SCH (09:00)
[2021-05-31] MEDS: PROPOFOL 100 ML IV PRN ×2 (12:15→20:17)
[2021-05-31] MEDS ORDERED: DEXMEDETOMIDINE 400 MCG in SODIUM CHLORIDE 0.9% 96 ML IV PRN (18:00)
[2021-06-01] MEDS: ALBUMIN HUMAN 25% 100 ML IV PRN ×2 (01:51→02:56)
[2021-06-01] MEDS: MIDAZOLAM HCL 50 MG in SODIUM CHLORIDE 0.9% 40 ML IV PRN ×2 (02:28→14:47)
[2021-06-01 05:38] LABS: MEAN CORPUSCULAR HEMOGLOBIN 28.7 pg (27.0-34.8); MEAN CORPUSCULAR HGB CONC 33.5 g/dL (32.4-35.8); PLATELET COUNT 231 x10^3/uL (130-400); RED BLOOD COUNT 2.98 x10^6/uL (3.82-5.3); RED CELL DISTRIBUTION WIDTH 16.1 % (9.6-15.2)
[2021-06-01 05:47] LABS: ALBUMIN 2.2 g/dL (3.4-5.0); ANION GAP 6 mmol/L (5-15); CALCIUM 7.6 mg/dL (8.5-10.1); CHLORIDE 99 mmol/L (98-107)
[2021-06-01 05:51] LABS: ALANINE AMINOTRANSFERASE 36 U/L (12-78); ALKALINE PHOSPHATASE 96 U/L (45-117); BILIRUBIN,TOTAL 1.2 mg/dL (0.2-1.0); CREATININE 1.57 mg/dL (0.55-1.02); TOTAL PROTEIN 7.2 g/dL (6.4-8.2)
[2021-06-01 06:04] LABS: BAND#(MANUAL) 0.27 x10^3/uL; BANDS%(MANUAL) 2 % (0-7); EOS#(MANUAL) 0.13 x10^3/uL (0.0-0.4); EOS% (MANUAL) 1 % (1-7); LYMPH#(MANUAL) 1.33 x10^3/uL (1-3.4); LYMPHS% (MANUAL) 10 % (22-44); METAMYELOCYTES# (MANUAL) 0.27 x10^3/uL (0-0); METAMYELOCYTES% (MANUAL) 2 % (0-1); MONOS#(MANUAL) 0.27 x10^3/uL (0.3-2.7); MONOS% (MANUAL) 2 % (2-9); SEG#(MANUAL) 11.04 x10^3/uL (1.8-6.8); SEGS% (MANUAL) 83 % (42-75)
[2021-06-01 06:05] LABS: <PLATELET ESTIMATE> ADEQUATE; <PLT MORPHOLOGY> NORMAL PLT MORPH; ANISOCYTOSIS 1+; POLYCHROMASIA 1+
[2021-06-01] MEDS ORDERED: CEFAZOLIN 1,000 MG IM SCH (09:30)
[2021-06-01] MEDS ORDERED: CEFAZOLIN PMX 1GM/50ML 50 ML IV SCH (09:30)
[2021-06-01] MEDS: SODIUM CHLORIDE FLUSH 10ML SYR IVF SCH ×2 (10:21→20:20)
[2021-06-01] MEDS: GABAPENTIN 100 MG CAPSULE PO SCH ×3 (10:21→20:21)
[2021-06-01] MEDS: LACTULOSE 20 GM/30 ML UDC PO SCH (10:21)
[2021-06-01] MEDS: MIDODRINE 5 MG TABLET PO SCH ×2 (10:21→20:21)
[2021-06-01] MEDS: OXYcodone IR 5MG TABLET PO PRN (10:22)
[2021-06-01] MEDS ORDERED: MIDO5TAB9 PO (19:55)
[2021-06-01] MEDS ORDERED: LACT20SO13 PO (19:55)
[2021-06-01] MEDS ORDERED: DARB200V SQ (19:55)
[2021-06-01] MEDS ORDERED: ERGO500017 PO (19:55)
[2021-06-01] MEDS ORDERED: GABA-826 PO (19:55)
[2021-06-01] MEDS ORDERED: ONDA4VIA60 IVPush (19:55)
[2021-06-01] MEDS ORDERED: OXYC5TAB98 PO (19:55)
[2021-06-01] MEDS ORDERED: CEFA1PIG IV (19:55)
[2021-06-01] MEDS ORDERED: ACET325T26 PO (19:55)
[2021-06-01] MEDS ORDERED: PANT40VI IVPush (19:55)
[2021-06-02] MEDS ORDERED: PANTOPRAZOLE 40 MG IV IVPush SCH (09:00)
== END 2021-06-01 23:01 | disposition short-term general hospital (02) | DRG 710 ==
LOC: SUATTDRO 16:49 → ED 17:30 → EDIP 17:38 → ED 18:36 → 4WST 18:55 → CSU 20:05 → CCU 05-23 02:25 → 4WST 05-23 18:52 → CCU 05-31 05:02
PROVIDERS: ADMIT Family Medicine; ATTEND Family Medicine
PROC: 30233N1 Transfusion of Nonautologous Red Blood Cells into Peripheral Vein, Percutaneous Approach (ICD-10-PCS; 2021-05-22)
PROC: 02HV33Z Insertion of Infusion Device into Superior Vena Cava, Percutaneous Approach (ICD-10-PCS; 2021-05-22)
PROC: B518ZZA Fluoroscopy of Superior Vena Cava, Guidance (ICD-10-PCS; 2021-05-22)
PROC: B543ZZA Ultrasonography of Right Jugular Veins, Guidance (ICD-10-PCS; 2021-05-22)
PROC: 5A12012 Performance of Cardiac Output, Single, Manual (ICD-10-PCS; 2021-05-22)
PROC: 05PYX3Z Removal of Infusion Device from Upper Vein, External Approach (ICD-10-PCS; 2021-05-22)
PROC: 5A1D70Z Performance of Urinary Filtration, Intermittent, Less than 6 Hours Per Day (ICD-10-PCS; 2021-05-24)
PROC: 0Y6J0Z1 Detachment at Left Lower Leg, High, Open Approach (ICD-10-PCS; principal; 2021-05-24 13:30)
PROC: 5A1D70Z Performance of Urinary Filtration, Intermittent, Less than 6 Hours Per Day (ICD-10-PCS; 2021-05-26)
PROC: 0JH63XZ Insertion of Tunneled Vascular Access Device into Chest Subcutaneous Tissue and Fascia, Percutaneous Approach (ICD-10-PCS; 2021-05-28)
PROC: 02HV33Z Insertion of Infusion Device into Superior Vena Cava, Percutaneous Approach (ICD-10-PCS; 2021-05-28)
PROC: B518ZZA Fluoroscopy of Superior Vena Cava, Guidance (ICD-10-PCS; 2021-05-28)
PROC: B543ZZA Ultrasonography of Right Jugular Veins, Guidance (ICD-10-PCS; 2021-05-28)
PROC: 5A1D70Z Performance of Urinary Filtration, Intermittent, Less than 6 Hours Per Day (ICD-10-PCS; 2021-05-29)
PROC: 5A1945Z Respiratory Ventilation, 24-96 Consecutive Hours (ICD-10-PCS; 2021-05-31)
PROC: 0BH17EZ Insertion of Endotracheal Airway into Trachea, Via Natural or Artificial Opening (ICD-10-PCS; 2021-05-31)
PROC: 02HV33Z Insertion of Infusion Device into Superior Vena Cava, Percutaneous Approach (ICD-10-PCS; 2021-05-31)
PROC: B544ZZA Ultrasonography of Left Jugular Veins, Guidance (ICD-10-PCS; 2021-05-31)
PROC: 5A1D70Z Performance of Urinary Filtration, Intermittent, Less than 6 Hours Per Day (ICD-10-PCS; 2021-05-31)
DX: A40.9 Streptococcal sepsis, unspecified (principal); J96.01 Acute respiratory failure with hypoxia; I46.9 Cardiac arrest, cause unspecified; R65.21 Severe sepsis with septic shock; E43 Unspecified severe protein-calorie malnutrition; G93.41 Metabolic encephalopathy; E11.52 Type 2 diabetes mellitus with diabetic peripheral angiopathy with gangrene; D63.1 Anemia in chronic kidney disease; J18.9 Pneumonia, unspecified organism; E11.649 Type 2 diabetes mellitus with hypoglycemia without coma; T80.211A Bloodstream infection due to central venous catheter, initial encounter; I13.2 Hypertensive heart and chronic kidney disease with heart failure and with stage 5 chronic kidney disease, or end stage renal disease; E11.22 Type 2 diabetes mellitus with diabetic chronic kidney disease; Z20.822 Contact with and (suspected) exposure to COVID-19; E11.40 Type 2 diabetes mellitus with diabetic neuropathy, unspecified; E11.621 Type 2 diabetes mellitus with foot ulcer; E11.69 Type 2 diabetes mellitus with other specified complication; I50.9 Heart failure, unspecified; L03.90 Cellulitis, unspecified; L97.509 Non-pressure chronic ulcer of other part of unspecified foot with unspecified severity; M86.672 Other chronic osteomyelitis, left ankle and foot; N18.6 End stage renal disease; Y84.8 Other medical procedures as the cause of abnormal reaction of the patient, or of later complication, without mention of misadventure at the time of the procedure; Z80.0 Family history of malignant neoplasm of digestive organs; Z68.32 Body mass index [BMI] 32.0-32.9, adult; Z83.3 Family history of diabetes mellitus; Z90.49 Acquired absence of other specified parts of digestive tract; Z91.19 Patient's noncompliance with other medical treatment and regimen; Z99.11 Dependence on respirator [ventilator] status; Z99.2 Dependence on renal dialysis; Z88.0 Allergy status to penicillin; Z79.899 Other long term (current) drug therapy
CPT/HCPCS: 36415; 36600; 77001; 84145; 87106; 96365; 96367; 99291; J3490; 36556; 36558; 36589; 71045; 76937; 80053; 80069; 80202; 81001; 82140; 82247; 82272; 82306; 82330; 82436; 82533; 82570; 82728; 82803; 82962; 83540; 83550; 83605; 83735; 83970; 84075; 84100; 84133; 84155; 84156; 84300; 84450; 84460; 84478; 84550; 84681; 85025; 85045; 85610; 85651; 86140; 86704; 86705; 86706; 86850; 86900; 86923; 87040; 87070; 87076; 87077; 87081; 87086; 87147; 87205; 87340; 87635; 88307; 90935; 92950; 93005; 93306; 93922; 93925; 94002; 94003; 99156; 99157; C1894; G0378; J0690; J0696; J0882; J1100; J1170; J2185; J2250; J2405; J2704; J3010; J3370; P9047; C1750; C1751; J0330; J0834; J1642; J2270; J2310; J7030; J7040; J7050; P9016